=== PATIENT | male | born 1930 | race Caucasian/White ===

== ENCOUNTER 2017-11-15 17:59 | Observation (INO) | payer OTHER, MEDICARE ==
[~2017-11-15] VITALS: Ht 172.7 cm; Wt 71.2 kg
[~2017-11-15 17:59] MED LIST: ALPRAZOLAM0.25 MG PO; AMPICILLIN TRI500 MG PO; ASPIRIN CHILDRE81 MG PO; ASPIRIN EC81 M1 PO; ASPIRIN81 MG PO; AUGMENTIN 875-1 EACH PO; AUGMENTIN 875875 MG PO; CELEXA20 MG PO; CELEXA40 M1 PO; CELEXA40 MG PO; CIPRO500 M1 PO; CITALOPRAM HBR40 MG PO; CITALOPRAM HYDR40 MG PO; CITALOPRAM20 MG PO; CLARITIN10 MG PO; DIAPER RASH OIN56 GM TOP; DULCOLAX5 MG PO; FLOMAX(MONOGRA0.4 MG PO; FLOMAX0.4 M1 PO; GABAPENTIN300 MG PO; LANTUS INS100 UNITS/ SC; LEVOTHROID SO0.05 MG PO; METFORMIN ER500 MG PO; METFORMIN1000 MG PO; MIRALAX17 GM PO; MOBIC15 MG PO; MOTRIN 400 MG400 MG PO; MYRBETRIQ25 M1 PO; NEURONTIN100 MG PO; NEURONTIN300 M1 PO; PIOGLITAZONE30 MG PO; PRILOSEC40 MG PO; PROTONIX40 M3 PO; RAMIPRIL5 MG PO; RAPAFLO8 MG PO; RASAGILINE MESYL1 MG PO; SENNA PLUS 50 M1 TAB PO; SENOKOT8.6 MG PO; SIMVASTATIN40 MG PO; SINEMET 25-1001 TAB PO; SINEMET 25-2501 EACH PO; TYLENOL #31 TAB PO; TYLENOL TAB 32325 MG PO; ULTRAM(MONOGRAP50 MG PO; ULTRAM50 MG PO; VESICARE 10MG10 MG PO; VICODIN 300 MG-1 TAB PO; XANAX0.25 M1 PO; ZOCOR20 M1 PO; [UNRECOGNIZED DRUG - OTHER] PO
--- NOTE | 2017-11-15 18:56 | ED GENERAL ADULT ---
History of Present Illness General Chief Complaint: General Adult Stated Complaint: ?LOW BLOOD SUGAR Source: patient, family, old records Exam Limitations: no limitations Vital Signs & Intake/Output Vital Signs & Intake/Output Vital Signs Date Time Temp Pulse Resp B/P B/P Pulse O2 O2 Flow FiO2 Mean Ox Delivery Rate 11/17 0800 Nasal 3.0L Cannula 11/17 0620 98.0 78 18 141/72 96 Nasal Cannula 11/17 0000 96 Nasal 3.0L Cannula 11/16 2300 98.2 80 20 120/74 96 Nasal 3.0L Cannula 11/16 1506 99.2 80 18 156/69 91 Room Air ED Intake and Output 11/17 0000 11/16 1200 Intake Total 995 400 Output Total Balance 995 400 Intake, IV 875 400 Intake, Oral 120 Patient 157 lb Weight Allergies Coded Allergies: NO KNOWN ALLERGIES (04/10/15) Reconcile Medications Aspirin (Ecotrin*) 81 MG TABLET.DR 1 TAB PO DAILY HEART/BLOOD (Reported) Carbidopa/Levodopa (Carbidopa-Levo ER 50-200 Tab) 50 MG-200 MG TABLET.ER 1 TAB PO TID PARKINSONS (Reported) Citalopram Hydrobromide (Citalopram HBr) 40 MG TABLET 1.5 TAB PO QHS DEPRESSION (Reported) Gabapentin (Neurontin) 300 MG CAPSULE 1 CAP PO BID NEUROPATHY (Reported) Mirabegron (Myrbetriq) 25 MG TAB.ER.24H 1 TAB PO QAM BPH (Reported) Pantoprazole Sodium (Protonix) 40 MG TABLET.DR 1 TAB PO QAM GI (Reported) Rasagiline Mesylate 1 MG TABLET 1 TAB PO QAM UNKNOWN (Reported) Simvastatin (Zocor*) 20 MG TABLET 1 TAB PO QPM CHOLESTEROL (Reported) Tamsulosin HCl (Flomax) 0.4 MG CAP.ER.24H 1 CAP PO QPM BPH (Reported) Triage Note: PT TO TRIAGE WITH HIS PRIVATE AIDE, PT LIVES AT HOME , PT STATES THAT HE JUST HAS NOT BEEN FEELING WELL SINCE THIS AM, DENIES PAIN AT THIS TIME , BUT STATES THAT HE HAS NOT BEEN FEELING WELL SINCE THIS AM, FEELS ACHEY ALL OVER, DENIES COUGH OR SOB, BUT PT NOTED TO SEEM SOB WHEN TALKING , COLOR PALE. PT IS A DIABETIC , BUT PER AIDE HIS SUGARS HAVE BEEN RUNNING ALL OVER THE PLACE, FS AT TRIAGE 187. PT TAKES NO MEDS FOR DIABETES. PT ALERT AND ORIENTED , DENIES CP/SOB/ABD PAIN, AIDE STATES THAT APPETITE HAS BEEN GOOD , NO PROBLEMS WITH BOWEL MOVEMENTS AND NO BLOOD NOTED IN STOOL. DENIES URINARY SYMPTOMS Triage Nurses Notes Reviewed? yes Onset: Abrupt Duration: day(s): (1), constant, continues in ED Timing: single episode today Injury Environment: home Severity: mild, moderate No Modifying Factors: none HPI: 87-year-old male past medical history Parkinson's disease, hypertension, hyperlipidemia and diabetes presents for evaluation of hyperglycemia. Patient's aide reports that he stopped taking oral diabetes medicines a year ago due to good blood sugar control with diet. Patient usually takes his sugar regularly and runs in the 140s. Today it was over 200. Patient does note that he did eat some doughnuts today. Patient states he feels well otherwise ovaries aide states that he feels like he is actively he has no past when he said UTIs. No fever chest pain shortness of breath. Patient does report some mild lower abdominal pain. No urinary symptoms. No back pain. He's been taking his medications as directed. No nausea vomiting diarrhea. He is eating normally. No coughing no lower extremity edema. (Adryan Graf) Past History Travel History Traveled to [place] past 21 day No Medical History Any Pertinent Medical History? see below for history Neurological: Parkinson's disease EENT: NONE Cardiovascular: hypertension, hyperlipidemia Respiratory: NONE Gastrointestinal: diverticulitis Hepatic: NONE Renal: NONE Musculoskeletal: NONE Psychiatric: NONE Endocrine: diabetes Blood Disorders: NONE Cancer(s): NONE PET FOOD DEBONER/Reproductive: NONE History of MRSA: No History of VRE: No History of CDIFF: No Influenza Vaccine: 07/24/17 Tetanus Vaccine: 02/17/15 Surgical History Surgical History: appendectomy, cholecystectomy, rotator cuff surgery, achilles tendon repair, hernia repair, sigmoid resection for diverticulitis Psychosocial History Who do you live with Spouse Services at Home Home Health Aide What is your primary language Armenian Tobacco Use: Never used ETOH Use: denies use Illicit Drug Use: denies illicit drug use Family History Family History, If Any: BROTHER (Patient has 2 brothers who were diagnosed with diabetes). Hx Contributory? No (Adryan Graf) Surgical History Surgical History: cholecystectomy, rotator cuff surgery, achilles tendon repair, hernia repair, sigmoid resection for diverticulitis (Domitila ALLAN,Taran Boyer) Review of Systems Review of Systems Constitutional: Reports: no symptoms. EENTM: Reports: no symptoms. Respiratory: Reports: no symptoms. Cardiovascular: Reports: no symptoms. GI: Reports: see HPI, abdominal pain. Genitourinary: Reports: no symptoms. Musculoskeletal: Reports: no symptoms. Skin: Reports: no symptoms. Neurological/Psychological: Reports: no symptoms. Hematologic/Endocrine: Reports: no symptoms. Immunologic/Allergic: Reports: no symptoms. All Other Systems: Reviewed and Negative (Adryan Graf) Physical Exam Physical Exam General Appearance: well developed/nourished, no apparent distress, alert, awake Head: atraumatic, normal appearance Eyes: Bilateral: normal appearance, PERRL, EOMI. Ears, Nose, Throat: normal pharynx, normal ENT inspection, hearing grossly normal Neck: normal inspection, supple, full range of motion Respiratory: normal breath sounds, chest non-tender, no respiratory distress, lungs clear Cardiovascular: regular rate/rhythm, normal peripheral pulses Peripheral Pulses: 2+ radial (R), 2+ radial (L) Gastrointestinal: normal bowel sounds, soft, no organomegaly, mild suprapubic Back: normal inspection, normal range of motion, no vertebral tenderness Extremities: normal inspection, normal range of motion, no edema Neurologic/Psych: no motor/sensory deficits, awake, alert, oriented x 3 Skin: intact, warm/dry, pallor Lymphatic: no anterior cervical mejia Core Measures ACS in differential dx? No CVA/TIA Diagnosis: No Sepsis Present: No Sepsis Focused Exam Completed? No (Adryan Graf) Progress Differential Diagnoses I considered the following diagnoses in my evaluation of the patient: [UTI, pneumonia, sepsis, electrolyte abnormality, diverticulitis, kidney stone, pyelonephritis hyperglycemia] Plan of Care: Orders Procedure Date/time Status Consistent Carbohydrate 3 11/17 B Active CBC WITHOUT DIFFERENTIAL 11/17 599 Complete BASIC ELECTROLYTES PLUS BUN&CR 11/17 06 Complete PT Evaluate & Treat 11/17 UNK Active Theraputic Activities 15 Min 11/17 UNK Complete MOBILITY GOAL STATUS 11/17 UNK Complete MOBILITY CURRENT STATUS 11/17 UNK Complete PT EVAL LOW COMPLEX 20 MIN 11/17 UNK Complete Clear Liquid Diet 11/16 D Complete Current Medications Sig/Eduin Start time Last Medication Dose Stop Time Status Admin Citalopram 40 MG DAILY 11/17 1000 AC 11/17 Hydrobromide 1055 (Celexa) Pantoprazole Sodium 40 MG DAILY 11/17 1000 CAN (Protonix) Tamsulosin HCl 0.4 MG DAILY 11/17 1000 AC 11/17 (Flomax) 1056 Heparin Sodium 5,000 UNIT Q8H 11/17 0945 AC 11/17 (Porcine) 1057 Insulin Human Regular 0 TIDAC/HS 11/17 0800 AC (NovoLIN R) Atorvastatin Calcium 20 MG AT BEDTIME 11/16 2199 CAN (Lipitor) Carbidopa/Levodopa 1 TAB TID 11/16 2199 AC 11/17 (Sinemet CR 50/200MG) 105 Citalopram 40 MG AT BEDTIME 11/16 2199 CAN Hydrobromide (Celexa) Gabapentin 300 MG BID 11/16 2199 AC 11/17 (Neurontin) 105 Tamsulosin HCl 0.4 MG QPM 11/16 2199 CAN (Flomax) Acetaminophen 650 MG Q4P PRN 11/16 2114 AC (Tylenol) Artificial Tears 2 GTT Q3P PRN 11/16 2114 AC (Tears Natural) Ketorolac 15 MG Q6-PRN PRN 11/16 2114 AC Tromethamine (Toradol) Ondansetron HCl 4 MG Q8P PRN 11/16 2114 AC (Zofran) Oxycodone/ 1 TAB Q4P PRN 11/16 2114 AC Acetaminophen (Percocet) Oxycodone/ 2 TAB Q4P PRN 11/16 2114 AC Acetaminophen (Percocet) Laboratory Tests 11/17/17 0745: Anion Gap 7, Estimated GFR > 60, BUN/Creatinine Ratio 15.0, CBC w Diff NO MAN DIFF REQ, RBC 4.39 L, MCV 67.5 L, MCH 21.5 L, MCHC 31.9 L, RDW 16.3 H, MPV 8.6, Gran % 70.9, Lymphocytes % 20.7, Monocytes % 6.1, Eosinophils % 1.9, Basophils % 0.4, Absolute Granulocytes 5.2, Absolute Lymphocytes 1.5, Absolute Monocytes 0.4, Absolute Eosinophils 0.1, Absolute Basophils 0 Patient seen and evaluated. His blood sugar here is in the 160s. Blood work shows normal electrolytes, white blood cell count negative lactic acid. Urine is not showing any signs of infection. Patient did have a drop in his pressure to the 90s over 50s. 2 L of normal saline was ordered without significant improvement. A CT scan of the abdomen and pelvis with contrast was ordered. Patient continues to be mentating at his baseline. Family is at bedside and feels like his mental status is at baseline. He denies any chest pain or shortness of breath. pt signed out to dr garcia pending ct scan result. Diagnostic Imaging: Viewed by Me: Radiology Read. Discussed w/RAD: Radiology Read. CXR Impression: PATIENT: EDIN VÁZQUEZ PRESENT AGE: 87 PATIENT ACCOUNT NO: [id number] : 31 LOCATION: [facility] ORDERING PHYSICIAN: Adryan ADAMSON SERVICE DATE: 11/15/17 EXAM TYPE: RAD - XRY-PORTABLE CHEST XRAY EXAMINATION: XR PORTABLE CHEST CLINICAL INFORMATION: Pneumonia CHF. Altered mental status. COMPARISON: Prior chest October 2017. TECHNIQUE: Portable frontal view of the chest was obtained. FINDINGS: Lung volumes remain low as seen previously. Lungs otherwise clear. The cardiac silhouette mediastinum and pulmonary vascularity are unremarkable. Postsurgical changes in left shoulder. IMPRESSION: No acute disease. DICTATED BY: Sylvester Leiva MD DATE/TIME DICTATED:11/15/172015 EEG TECHNOLOGIST:ZAHRA DATE/TIME TRANSCRIBED:11/15/172015 CONFIDENTIAL, DO NOT COPY WITHOUT APPROPRIATE AUTHORIZATION. <Electronically signed in Other Vendor System> SIGNED BY: Sylvester Leiva MD 11/15/172026 Initial ED EKG: normal sinus rhythm (rate 97), borderline inferior t wave abn Hand-Off Endorsed To: Taran Garcia MD Endorsed Time: 2320 Pending: CT (Adryan Graf) Diagnostic Imaging: Viewed by Me: CT Scan. Discussed w/RAD: CT Scan. Radiology Impression: PATIENT: EDIN VÁZQUEZ PRESENT AGE: 87 PATIENT ACCOUNT NO: [id number] : 31 LOCATION: [facility] ORDERING PHYSICIAN: Adryan ADAMSON SERVICE DATE: 11/15/17 EXAM TYPE: CAT - CT ABD & PELVIS W IV CONTRAST EXAMINATION: CT ABDOMEN AND PELVIS WITH CONTRAST CLINICAL INFORMATION: Abdominal pain COMPARISON: CT scan abdomen pelvis 07/31/2015 TECHNIQUE: Multidetector volumetric imaging was performed of the abdomen and pelvis following IV administration of 95 mL of Optiray 320 intravenous contrast. Sagittal and coronal reformatted images were obtained on the technologist's workstation. DLP: 888.47 mGy-cm FINDINGS: LUNG BASES: The visualized lung bases are unremarkable. LIVER, GALLBLADDER, AND BILIARY TREE: The liver is normal in size, shape, and attenuation. No focal hepatic lesion or biliary ductal dilatation is present. Gallbladder is absent. No bile duct dilatation. PANCREAS: The pancreas is atrophic. There is no inflammation. SPLEEN: Unremarkable. ADRENAL GLANDS: Unremarkable. KIDNEYS AND URETERS: The kidneys are normal in size, shape, and attenuation. No hydronephrosis, hydroureter, or calculi seen. No perinephric stranding. BLADDER: Unremarkable. ABDOMINAL WALL/GASTROINTESTINAL TRACT: There is a ventral wall hernia at the umbilicus. The abdominal wall defect measures about 1.7 cm superior inferior. Small bowel loops have herniated into this defect and is causing a mild small bowel obstruction. The proximal small bowel loops are slightly dilated. Surgical suture line at the sigmoid intact. No acute change of large bowel. Moderate to large-volume of stool throughout the colon. The appendix is not identified. LYMPH NODES: Normal. VASCULAR: Diffuse atherosclerotic vascular wall calcifications of the abdomen and pelvis. There is no aneurysm PELVIC VISCERA: Unremarkable. OSSEOUS STRUCTURES: Degenerative spondylosis spine with multilevel endplate spurring and facet joint arthrosis. IMPRESSION: Umbilical hernia containing a small bowel loop which is causing mild small bowel obstruction. DICTATED BY: Charlie Fabian MD DATE/TIME DICTATED:11/15/172333 EEG TECHNOLOGIST:ZAHRA DATE/TIME TRANSCRIBED:11/15/172333 CONFIDENTIAL, DO NOT COPY WITHOUT APPROPRIATE AUTHORIZATION. <Electronically signed in Other Vendor System> SIGNED BY: Charlie Fabian MD 11/15/17 0110 (Domitila ALLAN,Taran Boyer) Departure Departure Disposition: STILL A PATIENT Condition: Stable Clinical Impression Primary Impression: Abdominal pain Qualifiers: Abdominal location: lower abdomen, unspecified Qualified Code: R10.30 - Lower abdominal pain, unspecified Referrals: Kaylen ALLAN,Otis Powell (PCP/Family) Departure Forms: Customer Survey General Discharge Information (Adryan Graf) PA/[employer] Co-Sign Statement Statement: ED Attending supervision documentation- [X] I saw and evaluated the patient. I have also reviewed all the pertinent lab results and diagnostic results. I agree with the findings and the plan of care as documented in the PA's/[employer]'s documentation. [X] I have reviewed the ED Record and agree with the PA's/[employer]'s documentation. [] Additions or exceptions (if any) to the PAs/[employer]'s note and plan are summarized below: [] (Evie ALLAN,Sheryl) Departure Comments 11/16/17, 1:17am... discussed with Ms. Vázquez (his ) and shared news of his hernia and small bowel obstruction. She expresses understanding. Observation Note Spoke With: Calvin ALLAN,Silviano Seay Place Patient In: Non-ED OBS Care Area Rationale for Observation: My rational for observation is as follows . pt with umbilical hernia w/ sbo... after multiple attempts at reduction, pt to be placed in observation... will engage surgical team... pt to be monitored overnight. PA/[employer] Co-Sign Statement Statement: ED Attending supervision documentation- [x] I saw and evaluated the patient. I have also reviewed all the pertinent lab results and diagnostic results. I agree with the findings and the plan of care as documented in the PA's/[employer] documentation. 11.16.17, 1am... pt with umbilical hernia w/ sbo... unsuccessful attempt at reduction by myself and surgical PA.... pt to be admitted for likely surgical repair. [] I have reviewed the ED Record and agree with the PA's/[employer]'s documentation. [] Additions or exceptions (if any) to the PAs/[employer]'s note and plan are summarized below: [] (Domitila ALLAN,Taran Boyer) Critical Care Note Critical Care Note Critical Care Time: non-applicable (Adryan Graf) pt with umbilical hernia w/ sbo... after multiple attempts at reduction, pt to be placed in observation... will engage surgical team... pt to be monitored overnight. PA/[employer] Co-Sign Statement Statement: ED Attending supervision documentation- [x] I saw and evaluated the patient. I have also reviewed all the pertinent lab results and diagnostic results. I agree with the findings and the plan of care as documented in the PA's/[employer] documentation. 11.16.17, 1am... pt with umbilical hernia w/ sbo... unsuccessful attempt at reduction by myself and surgical PA.... pt to be admitted for likely surgical repair. [] I have reviewed the ED Record and agree with the PA's/[employer] documentation. [] Additions or exceptions (if any) to the PAs/[employer]'s note and plan are summarized below: [] (Domitila ALLAN,Taran Boyer) Critical Care Note Critical Care Note Critical Care Time: non-applicable (Naun ADAMSON,Adryan)
[2017-11-15] MEDS ORDERED: SINEMET 25-1001 EACH PO (19:17)
[2017-11-15] MEDS ORDERED: CARBIDOPA-LEVO1 EAC9 PO (19:19)
[2017-11-15 19:37] LABS: ABSOLUTE BASOPHIL COUNT 0 /CUMM (0.0-0.2); ABSOLUTE EOSINOPHIL COUNT 0.1 /CUMM (0.0-0.7); ABSOLUTE LYMPH COUNT 1.7 /CUMM (1.2-3.4); ABSOLUTE MONOCYTE COUNT 0.4 /CUMM (0.10-0.60); BASOPHIL % 0.5 % (0.0-2.0); EOSINOPHIL % 1.9 % (0-5); HEMATOCRIT 35.2 % (42-52); MEAN CORPUSCULAR HGB 20.8 PG (27.0-31.0); MEAN CORPUSCULAR HGB CONC 30.9 G/DL (33.0-37.0); MEAN PLATELET VOLUME 8.3 FL (7.4-10.4); PLATELET COUNT 223 /CUMM (130-400); RBC DISTRIBUTION WIDTH 16.5 % (11.5-14.5); RED BLOOD CELL CT 5.24 /CUMM (4.70-6.10); WHITE BLOOD CELL COUNT 7.2 /CUMM (4.8-10.8)
[2017-11-15 19:55] LABS: MEAN CORPUSCULAR VOLUME 67.2 FL (80.0-94.0)
--- NOTE | 2017-11-15 20:27 | RADIOLOGY REPORT ---
EXAMINATION: XR PORTABLE CHEST CLINICAL INFORMATION: Pneumonia CHF. Altered mental status. COMPARISON: Prior chest October 2017. TECHNIQUE: Portable frontal view of the chest was obtained. FINDINGS: Lung volumes remain low as seen previously. Lungs otherwise clear. The cardiac silhouette mediastinum and pulmonary vascularity are unremarkable. Postsurgical changes in left shoulder. IMPRESSION: No acute disease.
[2017-11-15 20:56] LABS: PT 11.7 SEC (9.4-12.5); PTT 30 SEC (25-37)
--- NOTE | 2017-11-15 23:58 | CT SCAN REPORT ---
EXAMINATION: CT ABDOMEN AND PELVIS WITH CONTRAST CLINICAL INFORMATION: Abdominal pain COMPARISON: CT scan abdomen pelvis 07/31/2015 TECHNIQUE: Multidetector volumetric imaging was performed of the abdomen and pelvis following IV administration of 95 mL of Optiray 320 intravenous contrast. Sagittal and coronal reformatted images were obtained on the technologist's workstation. DLP: 888.47 mGy-cm FINDINGS: LUNG BASES: The visualized lung bases are unremarkable. LIVER, GALLBLADDER, AND BILIARY TREE: The liver is normal in size, shape, and attenuation. No focal hepatic lesion or biliary ductal dilatation is present. Gallbladder is absent. No bile duct dilatation. PANCREAS: The pancreas is atrophic. There is no inflammation. SPLEEN: Unremarkable. ADRENAL GLANDS: Unremarkable. KIDNEYS AND URETERS: The kidneys are normal in size, shape, and attenuation. No hydronephrosis, hydroureter, or calculi seen. No perinephric stranding. BLADDER: Unremarkable. ABDOMINAL WALL/GASTROINTESTINAL TRACT: There is a ventral wall hernia at the umbilicus. The abdominal wall defect measures about 1.7 cm superior inferior. Small bowel loops have herniated into this defect and is causing a mild small bowel obstruction. The proximal small bowel loops are slightly dilated. Surgical suture line at the sigmoid intact. No acute change of large bowel. Moderate to large-volume of stool throughout the colon. The appendix is not identified. LYMPH NODES: Normal. VASCULAR: Diffuse atherosclerotic vascular wall calcifications of the abdomen and pelvis. There is no aneurysm PELVIC VISCERA: Unremarkable. OSSEOUS STRUCTURES: Degenerative spondylosis spine with multilevel endplate spurring and facet joint arthrosis. IMPRESSION: Umbilical hernia containing a small bowel loop which is causing mild small bowel obstruction.
--- NOTE | 2017-11-16 02:05 | History & Physical ---
Taran Lange 11/16/17 0154: General Information and HPI History of Present Illness: This is a 86 y/o M w/ PMHx of HTN, HLD, DMII (diet controlled), Parkinsons disease, depression, GERD, BPH, and UTIs that presents to [facility] with a one day history of worsening abdominal pain and generilized body aches. Of note, patient is not the best historian and does not answer questions directly when asked. Majority of history was obtained from chart review. Patient arrived to the ED with his private aid. Reportadly patient was in his usual state of health until yesterday morning he had generilized aches, feeling poor, and mild abdominal pain. Initially these symptoms were attributed to high glucose levels in the 200s. He normally checks his glucose regularly and it runs in the 140s, however it was abnormally elevated today. Also, patient has a history of UTIs causing abdominal pain and altered mental status, but this was not thought to be the case. Patients abdominal pain continued and became constant. He denies any associated nausea/vomiting, urinary systmptoms, fever/chills, dyspnea, chest pain, and/or palpitations. He did not eat well today and his last BM was yesterday. Therefore, he was brought to the ED for further evaluation. In the ED he was found to be in mild distress secondary to abdominal pain. Pt is afebrile and other vitals are within normal limits. WBC is 7.5 with a latic acid of 1.6. Other cbc and chemistry are within normal limits. UA is clean. CT abdomen shows a 1.7 cm superior inferior ventral hernia contraining small bowel loops with associtated mild SBO. Therefore, surgery consult was obtained. Allergies/Medications Allergies: Coded Allergies: NO KNOWN ALLERGIES (04/10/15) Past History Travel History Traveled to [place] past 21 day No Medical History Neurological: Parkinson's disease EENT: NONE Cardiovascular: hypertension, hyperlipidemia Respiratory: NONE Gastrointestinal: diverticulitis Hepatic: NONE Renal: NONE Musculoskeletal: NONE Psychiatric: NONE Endocrine: diabetes Blood Disorders: NONE Cancer(s): NONE TRENCH PIPE LAYER HELPER/Reproductive: NONE History of MRSA: No History of VRE: No History of CDIFF: No Tetanus Vaccine: 02/17/15 Surgical History Surgical History: cholecystectomy, rotator cuff surgery, achilles tendon repair, hernia repair, sigmoid resection for diverticulitis Past Family/Social History Family History Relations & Conditions if any BROTHER (Patient has 2 brothers who were diagnosed with diabetes). Psychosocial History Services at Home: Home Health Aide Primary Language: Polish ETOH Use: denies use Illicit Drug Use: denies illicit drug use Living Will? unknown Functional Ability ADLs Needs Assist: dressing, eating, toileting, bathing. Ambulation: independent IADLs Needs Assist: shopping, housework, finances, food prep, telephone, transportation, medication admin. Review of Systems Review of Systems Constitutional: Reports: see HPI. Exam & Diagnostic Data Last 24 Hrs of Vital Signs/I&O Vital Signs Date Time Temp Pulse Resp B/P B/P Pulse O2 O2 Flow FiO2 Mean Ox Delivery Rate 11/15 2330 97.4 82 13 111/60 93 Room Air 11/15 2308 86 18 115/66 97 Room Air Room Air 11/15 2138 97.9 88 18 92/56 96 Room Air 11/15 1959 98.1 90 18 95/52 95 Room Air 11/15 1925 Room Air 11/15 1805 97.7 99 18 158/100 95 Room Air Intake & Output 11/16 0800 11/16 0000 11/15 1600 Intake Total 1000 Output Total 600 Balance 400 Intake, IV 1000 Intake, Oral 0 Output, Urine 600 Patient 157 lb Weight Physical Exam General Appearance Alert, Oriented X3, No Acute Distress HEENT Atraumatic Neck Supple, No JVD Cardiovascular Regular Rate, Normal S1, Normal S2 Lungs Clear to Auscultation, Normal Air Movement Abdomen small palpable ventral hernia defect next to umbilicus, well healed midline verticle scar around umbilicus, tender, bowel sounds present Neurological Cranial Nerves 3-12 NL Extremities No Edema Last 24 Hrs of Labs/Tom: Laboratory Tests 11/15/172154: Lactic Acid Cancelled 11/15/172113: Urine Color YEL, Urine Clarity CLEAR, Urine pH 6.0, Ur Specific [place] 1.010, Urine Protein NEG, Urine Ketones NEG, Urine Nitrite NEG, Urine Bilirubin NEG, Urine Urobilinogen 0.2, Ur Leukocyte Esterase NEG, Ur Microscopic EXAM NOT REQUIRED, Urine Hemoglobin NEG, Urine Glucose NEG 11/15/171919: Anion Gap 11, Estimated GFR > 60, BUN/Creatinine Ratio 21.1, Glucose 163 H, Lactic Acid 1.6, Calcium 9.2, Total Bilirubin 0.4, AST 31, ALT 13 L, Alkaline Phosphatase 77, Troponin I < 0.01, Total Protein 7.1, Albumin 4.2, Globulin 2.9, Albumin/Globulin Ratio 1.4, PT 11.7, INR 1.07, APTT 30, CBC w Diff NO MAN DIFF REQ, RBC 5.24, MCV 67.2 L, MCH 20.8 L, MCHC 30.9 L, RDW 16.5 H, MPV 8.3, Gran % 69.0, Lymphocytes % 23.4, Monocytes % 5.2, Eosinophils % 1.9, Basophils % 0.5, Absolute Granulocytes 5.0, Absolute Lymphocytes 1.7, Absolute Monocytes 0.4 , Absolute Eosinophils 0.1, Absolute Basophils 0 11/15/17 1826: Sodium Cancelled, Potassium Cancelled, Chloride Cancelled, Carbon Dioxide Cancelled, Anion Gap Cancelled, BUN Cancelled, Creatinine Cancelled, BUN/ Creatinine Ratio Cancelled, Glucose Cancelled, Calcium Cancelled, Total Bilirubin Cancelled, AST Cancelled, ALT Cancelled, Alkaline Phosphatase Cancelled, Total Protein Cancelled, Albumin Cancelled, Globulin Cancelled, Albumin/Globulin Ratio Cancelled Microbiology 11/15 1920 NASOPHARYN: Influenza Virus A & B Rapid Smear - COMP Assessment/Plan Assessment: A: This is a 86 y/o M w/ PMHx of HTN, HLD, DMII (diet controlled), Parkinsons disease, depression, GERD, BPH, and UTIs that presents to [facility] with a one day history of worsening abdominal pain with CT evidence of SBO from incarcerated ventral hernia. Patient is hd stable. No leukocytosis and normal latic acid. Will admit to surgery service for observation for possible ventral hernia repair in the morning. P: GI: NPO for possible OR tomorrow morning, no need for NG tube at this time, recheck latic acid in am, zofran PRN, protonix CV: monitor vitals per protocol Pulm: pulmonary toilet with deep breathing/coughing, titrate 02 >92% Neuro: morphine iv PRN, toradol PRN : monitor i&os ID: afebrile, no wbc, monitor for fever, no need for abx at this time Fluids/e-lyes: low IVFs overnight, monitor e-lytes Ortho: oob as tolerated with assistance Heme: will hold off on ac for now, athrombic pumps Will discuss with Dr. Simpson As Ranked By This Provider Problem List: 1. Abdominal pain Qualifiers Abdominal location: lower abdomen, unspecified Qualified Code: R10.30 - Lower abdominal pain, unspecified Core Measures/Misc (05/26) Acute Coronary Syndrome ACS Diagnosis: No Congestive Heart Failure Congestive Heart Failure Diagnosis No Cerebrovascular Accident CVA/TIA Diagnosis: No VTE (View Protocol) VTE Risk Factors Age>40 No Mechanical VTE Prophylaxis d/t N/A MechProphylax Ordered No VTE Pharm Prophylaxis d/t Surgical Contraindication Sepsis (View protocol) Sepsis Present: No Silviano Simpson MD 11/16/17 0851: General Information and HPI Allergies/Medications Home Med list Aspirin (Ecotrin*) 81 MG TABLET.DR 1 TAB PO DAILY HEART/BLOOD (Reported) Carbidopa/Levodopa (Carbidopa-Levo ER 50-200 Tab) 50 MG-200 MG TABLET.ER 1 TAB PO TID PARKINSONS (Reported) Citalopram Hydrobromide (Citalopram HBr) 40 MG TABLET 1.5 TAB PO QHS DEPRESSION (Reported) Gabapentin (Neurontin) 300 MG CAPSULE 1 CAP PO BID NEUROPATHY (Reported) Mirabegron (Myrbetriq) 25 MG TAB.ER.24H 1 TAB PO QAM BPH (Reported) Pantoprazole Sodium (Protonix) 40 MG TABLET.DR 1 TAB PO QAM GI (Reported) Rasagiline Mesylate 1 MG TABLET 1 TAB PO QAM UNKNOWN (Reported) Simvastatin (Zocor*) 20 MG TABLET 1 TAB PO QPM CHOLESTEROL (Reported) Tamsulosin HCl (Flomax) 0.4 MG CAP.ER.24H 1 CAP PO QPM BPH (Reported) Past History Surgical History Surgical History: appendectomy, hernia repair-inguinal Exam & Diagnostic Data Last 24 Hrs of Vital Signs/I&O Vital Signs Date Time Temp Pulse Resp B/P B/P Pulse O2 O2 Flow FiO2 Mean Ox Delivery Rate 11/16 0620 98.3 75 18 108/60 91 Room Air 11/16 0258 98.5 84 18 106/62 91 Room Air 11/16 0233 97.3 87 18 125/91 98 Room Air 11/15 2330 97.4 82 13 111/60 93 Room Air 11/15 2308 86 18 115/66 97 Room Air Room Air 11/15 2138 97.9 88 18 92/56 96 Room Air 11/15 1958 98.1 90 18 95/52 95 Room Air 11/15 1925 Room Air 11/15 1805 97.7 99 18 158/100 95 Room Air Intake & Output 11/16 1600 11/16 0800 11/16 0000 Intake Total 400 1000 Output Total 600 Balance 400 400 Intake, IV 400 1000 Intake, Oral 0 Output, Urine 600 Patient 157 lb 157 lb Weight Attending MD Review Statement Attending Statement Attending MD Statement: examined this patient, discuss w/resident/PA/JOINT SUPERVISOR, reviewed images Attending Assessment/Plan: Patient with incarcerated small bowel-containing incisional/periumbilical hernia. The hernia is now reduced and his symptoms have resolved. I recommend he undergo laparoscopic incisional hernia repair with mesh now, as he will likely have recurrence. I am concerned that his next episode of incarceration will progress to bowel ischemia. He is very reluctant to undergo surgery. But he appears confused. I discussed with his and daughter who state that he is of limited mobility. I feel he is moderate risk for perioperative complications The risk of hernia observation is high. Incarceration will likley recur. As of now, there is no emergent need for surgery since bowel has been reduced and symptoms resolved. Will await family decision. Plan feed and discharge if he decides against surgery. Discussed risks of surgery including but not limited to bleeding, infection and recurrence of the hernia. Understands permanent nature of mesh and need for explantation if infection occurs.
[2017-11-16 02:58] VITALS: BP 106/62
[2017-11-16 06:20] VITALS: BP 108/60
[2017-11-16 08:52] LABS: ABSOLUTE BASOPHIL COUNT 0 /CUMM (0.0-0.2); ABSOLUTE EOSINOPHIL COUNT 0.2 /CUMM (0.0-0.7); ABSOLUTE GRANULOCYTE CT 4.3 /CUMM (1.4-6.5); ABSOLUTE LYMPH COUNT 2.1 /CUMM (1.2-3.4); ABSOLUTE MONOCYTE COUNT 0.4 /CUMM (0.10-0.60); BASOPHIL % 0.6 % (0.0-2.0); EOSINOPHIL % 2.7 % (0-5); GRANULOCYTE % 61.4 % (42.2-75.2); MEAN CORPUSCULAR HGB 21.5 PG (27.0-31.0); MEAN CORPUSCULAR HGB CONC 32.5 G/DL (33.0-37.0); MEAN CORPUSCULAR VOLUME 66.3 FL (80.0-94.0); MEAN PLATELET VOLUME 8.7 FL (7.4-10.4); PLATELET COUNT 175 /CUMM (130-400); RBC DISTRIBUTION WIDTH 16.2 % (11.5-14.5); RED BLOOD CELL CT 4.24 /CUMM (4.70-6.10)
[2017-11-16 09:58] LABS: HEMATOCRIT 28.1 % (42-52)
--- NOTE | 2017-11-16 11:43 | PN- General Surgery ---
Surgical Brief Attending Note Brief Attending Note: discussed with family. they are interested in hernia repair. plan for open repair with mesh under local MAC today. Unfortunately, there are two operations now scheduled that take operative priority. will go to OR when time available.
[2017-11-16 15:06] VITALS: BP 156/69
--- NOTE | 2017-11-16 19:03 | Event Note ---
Event Note Event Note: Patient is ready for surgery. He is mentally incapable for informed consent. I obtained consent from his daughter, Jean Vázquez over the phone as witnessed by nursing. I informed her that anesthesia will also require consent and that they will be calling as well. Unfortunately there is no answer to any of the numbers we have for patients contacts. Will proceed with surgery despite lack of anesthesia consent. Plan for open incisional hernia repair under local MAC (TEVA ).
--- NOTE | 2017-11-16 20:20 | Operative Report ---
Operative/Inv Procedure Report Surgery Date: 11/16/17 Name of Procedure: Standard incisional hernia repair with mesh Pre-Operative Diagnosis: Incarcerated incisional hernia Post-Operative Diagnosis: Same Estimated Blood Loss: scant Surgeon/Science Analyst: Calvin ALLAN,Silviano Seay/Ivis ADAMSON Anesthesia: laryngeal mask airway Implants: 4.5 cm ventral X mesh Operative/Procedure Note Note: After informed consent patient brought to the operating room and laid supine. Gen. anesthesia obtained and the abdomen was prepped and draped. The periumbilical tissues were infiltrated with a cocktail local anesthesia. A curvilinear incision was made sharply. We dissected down to the umbilical stalk and circumferentially dissected it bluntly. The stock was then transected with cautery, thus exposing the defect. The hernia sac was circumferentially dissected down to level of fascia and incised the neck with cautery. There were 2 fascial defects both of which were incorporated into the same fascial closure site. Contents were then reduced. Intra-peritoneal planes were then created a circumferential fashion due to the need for mesh placement. We measured the defect. It was 3 centered in greatest dimension. I initially chose a 6.6 cm Parietex mesh but could not place it probably due to difficulties with the mesh itself. I could never get it to lay flat and after multiple attempts, I extracted it and passed off the field. I then chose a 4 cm ventral X mesh. The mesh was rolled up and placed in the peritoneal cavity then unraveled below the defect. The fascia was then closed over the mesh with interrupted 0 Maxon sutures, incorporating a portion of the mesh laterally to keep it centered. Wound was irrigated with saline. The umbilical stalk re-created with 3-0 Vicryl. Incision was then closed in layers of Vicryl. Sterile dressings were applied. Sponge and needle counts are correct CC: Kaylen ALLAN,Otis Powell
[2017-11-16 23:00] VITALS: BP 120/74
--- NOTE | 2017-11-17 00:10 | PN- General Surgery ---
Subjective Subjective: Postop check Pt is now s/p open Ventral hernia repair under general anesthesia with LMA ( converted from local/mac due to need for intraop paralytic to facilitate procedure). Pt is doing well at this time. He reports no major complaints and denies pain. Tolerating sips of clear liquids. No nausea or vomiting. Incontinent of urine x 2 since arrival to floor, and also in pacu and OR previously. Denies CP or difficulty breathing. Objective Vital Signs and I&Os Vital Signs Date Time Temp Pulse Resp B/P B/P Pulse O2 O2 Flow FiO2 Mean Ox Delivery Rate 11/16 1506 99.2 80 18 156/69 91 Room Air 11/16 0620 98.3 75 18 108/60 91 Room Air 11/16 0258 98.5 84 18 106/62 91 Room Air 11/16 0233 97.3 87 18 125/91 98 Room Air Intake & Output 11/16 1600 11/16 0800 11/16 0000 / 1600 11/15 0800 11/15 0000 Intake Total 492 433 2756 Output Total 600 Balance 800 400 400 Intake, IV 147 850 1584 Intake, Oral 0 Output, Urine 600 Patient 157 lb 157 lb Weight Physical Exam: Gen: Pt is resting, but easily arousable and cooperative. He seems to be oriented to situation, but it's unclear. Exhibits logical humor. Cardiac: regular Pulmonary: clear Abdomen: Soft and nondistended. Dressing is c/d/i. No BS heard as of yet. Admits to mild jes-incisional tenderness. Assessment/Plan Assessment/Plan Pt is an 87 yo M who was admitted with an incarcerated ventral (supra-umbilical) hernia, which was eventually reduced without surgical intervention. Given the possible risk of recurrence, the decision was made to intervene with surgical repair. He is now POD #0 s/p ventral hernia repair with mesh. He tolerated the procedure well. Plan: -ok to advance diet as tolerated. -decrease IVF rate to 50/hr and then heplock in AM if tolerating po. -pain control with tylenol if needed. percocet or morphine if needed for more severe pain, but will try to avoid given pt's age. -leave dressing in place for now. reinforce prn. -SC heparin/alps for DVT ppx. -Protonix for GI ppx. -ambulate with assistance in am. (?baseline activity level). Consider PT consult for dc recommendations in am if needed. -home meds resumed, except those that aren't available. -insulin sliding scale with meals. Core Measures Venous Thromboembolism VTE Risk Factors Age>40 No Mechanical VTE Prophylaxis d/t N/A MechProphylax Ordered No VTE Pharm Prophylaxis d/t Surgical Contraindication
--- NOTE | 2017-11-17 00:18 | Patient Discharge Instructions ---
Discharge Instructions General Discharge Information You were seen/treated for: INCARCERATED VENTRAL HERNIA You had these procedures: REDUCTION OF HERNIA AT BEDSIDE, FOLLOWED BY OPEN REPAIR OF VENTRAL HERNIA WITH MESH Watch for these problems: FEVER >101, NAUSEA/VOMITING, DRAINAGE FROM WOUND, CHEST PAIN OR DIFFICULTY BREATHING Do not soak the wound: Yes Other wound care: YOU MAY REMOVE BAND-AIDS 2 DAYS AFTER SURGERY AND SHOWER DESIRED. LEAVE STERI STRIPS IN PLACE UNTIL THEY FALL OFF ON THEIR OWN. Diet Continue normal diet: Yes Recommended Diet: Diabetic Activity Full Activity/No Limits: No Activity Self Limited: Yes Pounds, do NOT lift more than: 5 Other activity limits: YOU MAY AMBULATE PER YOUR BASELINE LEVEL. NO STRENUOUS ACTIVITY OR HEAVY LIFTING, PUSHING OR PULLING. Acute Coronary Syndrome Inclusion Criteria At DC or during hospital stay patient has or had the following: ACS DIAGNOSIS No Discharge Core Measures Meds if any: Prescribed or Continued at Discharge Meds if any: NOT Prescribed or Continued at Discharge Congestive Heart Failure Inclusion Criteria At DC or during hospital stay patient has or had the following: CHF DIAGNOSIS No Discharge Core Measures Meds if any: Prescribed or Continued at Discharge Meds if any: NOT Prescribed or Continued at Discharge Cerebrovascular accident Inclusion Criteria At DC or during hospital stay patient has or had the following: CVA/TIA Diagnosis No Discharge Core Measures Meds if any: Prescribed or Continued at Discharge Meds if any: NOT Prescribed or Continued at Discharge Venous thromboembolism Inclusion Criteria VTE Diagnosis No VTE Type NONE VTE Confirmed by (Test) NONE Discharge Core Measures - Per Current guidelines, there needs to be overlap - treatment for the first 5 days of Warfarin therapy. - If discharged on Warfarin prior to 5 days of - overlap therapy, the patient will need to be - assessed for post discharge needs including - *Post discharge parental anticoagulation - *Warfarin and/or parental anticoagulation education - *Follow up date to check INR post discharge At least 5 days overlap therapy as Inpatient No Meds if any: Prescribed or Continued at Discharge Note: Overlap Therapy is Warfarin and Anticoagulant Meds if any: NOT Prescribed or Continued at Discharge
[2017-11-17 06:20] VITALS: BP 141/72
[2017-11-17 08:54] LABS: ABSOLUTE BASOPHIL COUNT 0 /CUMM (0.0-0.2); ABSOLUTE EOSINOPHIL COUNT 0.1 /CUMM (0.0-0.7); ABSOLUTE GRANULOCYTE CT 5.2 /CUMM (1.4-6.5); ABSOLUTE LYMPH COUNT 1.5 /CUMM (1.2-3.4); ABSOLUTE MONOCYTE COUNT 0.4 /CUMM (0.10-0.60); BASOPHIL % 0.4 % (0.0-2.0); EOSINOPHIL % 1.9 % (0-5); GRANULOCYTE % 70.9 % (42.2-75.2); HEMATOCRIT 29.6 % (42-52); MEAN CORPUSCULAR HGB 21.5 PG (27.0-31.0); MEAN CORPUSCULAR HGB CONC 31.9 G/DL (33.0-37.0); MEAN CORPUSCULAR VOLUME 67.5 FL (80.0-94.0); MEAN PLATELET VOLUME 8.6 FL (7.4-10.4); PLATELET COUNT 182 /CUMM (130-400); RBC DISTRIBUTION WIDTH 16.3 % (11.5-14.5); RED BLOOD CELL CT 4.39 /CUMM (4.70-6.10); WHITE BLOOD CELL COUNT 7.3 /CUMM (4.8-10.8)
--- NOTE | 2017-11-17 09:51 | PN- General Surgery ---
See Addendum Subjective Subjective: feeling well, offers no complaints. denies pain, not taking pain meds. awaiting his breakfast tray. +flatus no n/v. no cp/sob. no oob- awaiting pt eval Objective Vital Signs and I&Os Vital Signs Date Time Temp Pulse Resp B/P B/P Pulse O2 O2 Flow FiO2 Mean Ox Delivery Rate 11/17 0800 Nasal 3.0L Cannula 11/17 0620 98.0 78 18 141/72 96 Nasal Cannula 11/17 0000 96 Nasal 3.0L Cannula 11/16 2300 98.2 80 20 120/74 96 Nasal 3.0L Cannula 11/16 1506 99.2 80 18 156/69 91 Room Air Intake & Output 11/17 1600 11/17 0800 11/17 0000 11/16 1600 11/16 0800 11/16 0000 Intake Total 520 195 492 063 9303 Output Total 600 Balance 520 195 800 400 400 Intake, IV 400 75 391 273 4297 Intake, Oral 120 120 0 Number 0 Bowel Movements Output, Urine 600 Patient 157 lb 157 lb Weight Physical Exam: GEN- NAD, pleasantly confused. CARD-S1S2 RRR PULM- CTAB ABD- soft, dressing CDI, ttp surrounding incision, quiet bs ext- calves soft nt, alps on bl Results Last 48 Hours of Labs: Laboratory Tests 11/17 11/16 0745 0705 Chemistry Sodium (137 - 145 mmol/L) 139 141 Potassium (3.5 - 5.1 mmol/L) 4.2 4.2 Chloride (98 - 107 mmol/L) 104 104 Carbon Dioxide (22 - 30 mmol/L) 28 26 Anion Gap (5 - 16) 7 10 BUN (9 - 20 mg/dL) 12 17 Creatinine (0.7 - 1.2 mg/dL) 0.8 0.9 Estimated GFR (>60 ml/min) > 60 > 60 BUN/Creatinine Ratio (7 - 25 %) 15.0 18.9 Lactic Acid (0.7 - 2.1 mmol/L) 0.9 Hematology CBC w Diff NO MAN DIFF REQ NO MAN DIFF REQ WBC (4.8 - 10.8 /CUMM) 7.3 7.0 RBC (4.70 - 6.10 /CUMM) 4.39 L 4.24 L Hgb (14.0 - 18.0 G/DL) 9.5 L 9.1 L Hct (42 - 52 %) 29.6 L 28.1 L MCV (80.0 - 94.0 FL) 67.5 L 66.3 L MCH (27.0 - 31.0 PG) 21.5 L 21.5 L MCHC (33.0 - 37.0 G/DL) 31.9 L 32.5 L RDW (11.5 - 14.5 %) 16.3 H 16.2 H Plt Count (130 - 400 /CUMM) 182 175 MPV (7.4 - 10.4 FL) 8.6 8.7 Gran % (42.2 - 75.2 %) 70.9 61.4 Lymphocytes % (20.5 - 51.1 %) 20.7 29.8 Monocytes % (1.7 - 9.3 %) 6.1 5.5 Eosinophils % (0 - 5 %) 1.9 2.7 Basophils % (0.0 - 2.0 %) 0.4 0.6 Absolute Granulocytes (1.4 - 6.5 /CUMM) 5.2 4.3 Absolute Lymphocytes (1.2 - 3.4 /CUMM) 1.5 2.1 Absolute Monocytes (0.10 - 0.60 /CUMM) 0.4 0.4 Absolute Eosinophils (0.0 - 0.7 /CUMM) 0.1 0.2 Absolute Basophils (0.0 - 0.2 /CUMM) 0 0 11/15 11/15 2155 2114 Chemistry Lactic Acid Cancelled Urines Urine Color (YEL,AMB,STR) YEL Urine Clarity (CLEAR) CLEAR Urine pH (5.0 - 8.0) 6.0 Ur Specific [place] (1.001 - 1.035) 1.010 Urine Protein (NEG,<30 MG/DL) NEG Urine Ketones (NEG) NEG Urine Nitrite (NEG) NEG Urine Bilirubin (NEG) NEG Urine Urobilinogen (0.1 - 1.0 EU/dl) 0.2 Ur Leukocyte Esterase (NEG) NEG Ur Microscopic EXAM NOT REQUIRED Urine Hemoglobin (NEG) NEG Urine Glucose (N MG/DL) NEG 11/15 11/15 1920 1826 Chemistry Sodium (137 - 145 mmol/L) 133 L Cancelled Potassium (3.5 - 5.1 mmol/L) 4.2 Cancelled Chloride (98 - 107 mmol/L) 94 L Cancelled Carbon Dioxide (22 - 30 mmol/L) 28 Cancelled Anion Gap (5 - 16) 11 Cancelled BUN (9 - 20 mg/dL) 19 Cancelled Creatinine (0.7 - 1.2 mg/dL) 0.9 Cancelled Estimated GFR (>60 ml/min) > 60 BUN/Creatinine Ratio (7 - 25 %) 21.1 Cancelled Glucose (65 - 99 mg/dL) 163 H Cancelled Lactic Acid (0.7 - 2.1 mmol/L) 1.6 Calcium (8.4 - 10.2 mg/dL) 9.2 Cancelled Total Bilirubin (0.2 - 1.3 mg/dL) 0.4 Cancelled AST (17 - 59 U/L) 31 Cancelled ALT (21 - 72 U/L) 13 L Cancelled Alkaline Phosphatase (< 127 U/L) 77 Cancelled Troponin I (<0.11 ng/ml) < 0.01 Total Protein (6.3 - 8.2 g/dL) 7.1 Cancelled Albumin (3.5 - 5.0 g/dL) 4.2 Cancelled Globulin (1.9 - 4.2 gm/dL) 2.9 Cancelled Albumin/Globulin Ratio (1.1 - 2.2 %) 1.4 Cancelled Coagulation PT (9.4 - 12.5 SEC) 11.7 INR (0.90 - 1.17) 1.07 APTT (25 - 37 SEC) 30 Hematology CBC w Diff NO MAN DIFF REQ WBC (4.8 - 10.8 /CUMM) 7.2 RBC (4.70 - 6.10 /CUMM) 5.24 Hgb (14.0 - 18.0 G/DL) 10.9 L Hct (42 - 52 %) 35.2 L MCV (80.0 - 94.0 FL) 67.2 L MCH (27.0 - 31.0 PG) 20.8 L MCHC (33.0 - 37.0 G/DL) 30.9 L RDW (11.5 - 14.5 %) 16.5 H Plt Count (130 - 400 /CUMM) 223 MPV (7.4 - 10.4 FL) 8.3 Gran % (42.2 - 75.2 %) 69.0 Lymphocytes % (20.5 - 51.1 %) 23.4 Monocytes % (1.7 - 9.3 %) 5.2 Eosinophils % (0 - 5 %) 1.9 Basophils % (0.0 - 2.0 %) 0.5 Absolute Granulocytes (1.4 - 6.5 /CUMM) 5.0 Absolute Lymphocytes (1.2 - 3.4 /CUMM) 1.7 Absolute Monocytes (0.10 - 0.60 /CUMM) 0.4 Absolute Eosinophils (0.0 - 0.7 /CUMM) 0.1 Absolute Basophils (0.0 - 0.2 /CUMM) 0 Assessment/Plan Assessment/Plan A- POD1 sp repair ventral hernia with mesh, stable with baseline dementia, awaiting meal and ambulation. P- ada diet as tolerated HL home meds prn pain meds hep sq, alps I&Os OOB, PT eval for DC recs titrate o2 labs reviewed dc planning will dw attending Core Measures Venous Thromboembolism VTE Risk Factors Age>40 No Mechanical VTE Prophylaxis d/t N/A MechProphylax Ordered No VTE Pharm Prophylaxis d/t Surgical Contraindication
[2017-11-17] MEDS ORDERED: PERCOCET 5-3251 EACH PO (12:51)
[2017-11-17 14:39] VITALS: BP 106/69
== END 2017-11-17 15:04 ==
LOC: ERH 17:59 → ERHI 11-16 01:03 → ENRESERV 11-16 02:14 → 2NA 11-16 02:58 → ENTRNSPT 11-16 21:33 → EDTRNSPTSTS 11-16 21:42 → CMPTRNSPT 11-16 22:09 → 2NA 11-17 11:17 → ENPENDDIS 11-17 12:52 → 2NA 11-17 15:04
PROVIDERS: Physician Assistant Medical; Physician Assistant Surgical
DX: K43.0 Incisional hernia with obstruction, without gangrene (principal); I10 Essential (primary) hypertension; Z79.82 Long term (current) use of aspirin; E78.5 Hyperlipidemia, unspecified; F32.9 Major depressive disorder, single episode, unspecified; K21.9 Gastro-esophageal reflux disease without esophagitis; N40.0 Benign prostatic hyperplasia without lower urinary tract symptoms; Z87.440 Personal history of urinary (tract) infections; E11.9 Type 2 diabetes mellitus without complications; G20 Parkinson's disease; F02.80 Dementia in other diseases classified elsewhere, unspecified severity, without behavioral disturbance, psychotic disturbance, mood disturbance, and anxiety; Z79.899 Other long term (current) drug therapy
CPT/HCPCS: 36592; 71045; 74177; 81003; 82436; 87804; 87804-59; 93005; 93010; 96360; 96372; 97161-GP; 97530-GP; C1781; G0378; G8978-GP; G8979-GP; J0131; J0690; J1644; J1815; J2405

== ENCOUNTER 2018-01-28 13:32 | Inpatient (IN) | payer OTHER, MEDICARE ==
[~2018-01-28] VITALS: Ht 175.3 cm; Wt 77.2 kg
[~2018-01-28 13:32] MED LIST changes: +CARBIDOPA-LEVO1 EAC9 PO; +PERCOCET 5-3251 EACH PO; +SINEMET 25-1001 EACH PO
[2018-01-28 14:43] LABS: ABSOLUTE BASOPHIL COUNT 0 /CUMM (0.0-0.2); ABSOLUTE EOSINOPHIL COUNT 0.1 /CUMM (0.0-0.7); ABSOLUTE GRANULOCYTE CT 6.1 /CUMM (1.4-6.5); ABSOLUTE LYMPH COUNT 1.4 /CUMM (1.2-3.4); ABSOLUTE MONOCYTE COUNT 0.6 /CUMM (0.10-0.60); BASOPHIL % 0.5 % (0.0-2.0); EOSINOPHIL % 0.8 % (0-5); GRANULOCYTE % 74.5 % (42.2-75.2); HEMATOCRIT 34.2 % (42-52); MEAN CORPUSCULAR HGB 21.2 PG (27.0-31.0); MEAN CORPUSCULAR HGB CONC 31.7 G/DL (33.0-37.0); MEAN CORPUSCULAR VOLUME 66.9 FL (80.0-94.0); MEAN PLATELET VOLUME 7.3 FL (7.4-10.4); PLATELET COUNT 260 /CUMM (130-400); RBC DISTRIBUTION WIDTH 16.2 % (11.5-14.5); RED BLOOD CELL CT 5.11 /CUMM (4.70-6.10); WHITE BLOOD CELL COUNT 8.3 /CUMM (4.8-10.8)
--- NOTE | 2018-01-28 14:46 | ED AMS/SEIZURE/WEAK/DIZZY ---
See Addendum History of Present Illness General Chief Complaint: Altered Mental Status Stated Complaint: AMS;HALUCINATIONS; WEAKNESS Source: old records Exam Limitations: confusion Vital Signs & Intake/Output Vital Signs & Intake/Output Vital Signs Date Time Temp Pulse Resp B/P B/P Pulse O2 O2 Flow FiO2 Mean Ox Delivery Rate 01/284 89 140/70 01/28 1945 98.6 84 20 140/70 92 Room Air 01/28 1816 98.3 89 20 140/73 91 Room Air 01/28 1613 98.4 89 16 134/70 93 Room Air 01/28 1407 97.8 90 20 119/74 94 Room Air Allergies Coded Allergies: NO KNOWN ALLERGIES (04/10/15) Triage Note: PER FOOD AND BEVERAGE MANAGER SAW DR GONSALVES YESTERDAY FOR "WEAKNESS" UNABLE TO GET URINE PT WEARS [place] CATH AND DID NOT OBTAIN URINE PER CAREGIVER THIS AM MORE CONFUSED PT IN TRIAGE CONFUSED CALM AND COOP DISCUSSING BASEBALL NOT REPORTED HALLUCINATIONS Triage Nurses Notes Reviewed? yes Onset: Gradual Duration: getting worse Timing: recent history Severity: moderate Severity Numbers: 5 HPI: Patient is a 87-year-old male with a past medical history of hypertension hyperlipidemia and diabetes type 2, Parkinson's disease depression GERD frequent UTIs who per old records also indicates that on 11/16/2017 patient had surgical intervention due to incarcerated small bowel containing incisional and periumbilical hernia performed by surgeon Dr. Simpson Who presents emergency room with caregiver for concerns of a 3 day history of gradually worsening confusion Patient AID USES a [place] catheter administration No blood noted by aid last bowel movement was 2 days ago no blood normal consistency. No signs of specific infection per her aid denies any fever chills cough abdominal pain nausea vomiting or pain. No new medications per the aide. Caregiver also states that patient has had a significant decline in the past 3 days of generalized weakness and assistance upon ambulation and weightbearing activities (Laurent Arteaga) Reconcile Medications Aspirin (Ecotrin*) 81 MG TABLET.DR 1 TAB PO QPM HEART/BLOOD (Reported) Carbidopa/Levodopa (Carbidopa-Levo ER 50-200 Tab) 50 MG-200 MG TABLET.ER 1 TAB PO TID PARKINSONS (Reported) Citalopram Hydrobromide (Citalopram HBr) 40 MG TABLET 1.5 TAB PO QPM DEPRESSION (Reported) Fludrocortisone Acetate 0.1 MG TABLET 1 TAB PO DAILY BP (Reported) Gabapentin (Neurontin) 300 MG CAPSULE 1 CAP PO BID NEUROPATHY (Reported) Mirabegron (Myrbetriq) 25 MG TAB.ER.24H 1 TAB PO QAM BPH (Reported) Pantoprazole Sodium (Protonix) 40 MG TABLET.DR 1 TAB PO QAM GI (Reported) Simvastatin (Zocor*) 20 MG TABLET 1 TAB PO QPM CHOLESTEROL (Reported) Tamsulosin HCl (Flomax) 0.4 MG CAP.ER.24H 1 CAP PO QPM BPH (Reported) (Kael Easton DO) Past History Travel History Traveled to [place] past 21 day No Medical History Any Pertinent Medical History? see below for history Neurological: Parkinson's disease EENT: NONE Cardiovascular: hypertension, hyperlipidemia Respiratory: NONE Gastrointestinal: diverticulitis Hepatic: NONE Renal: NONE Musculoskeletal: NONE Psychiatric: NONE Endocrine: diabetes Blood Disorders: NONE Cancer(s): NONE TRUCK SERVICE MANAGER/Reproductive: NONE History of MRSA: No History of VRE: No History of CDIFF: No Tetanus Vaccine: 02/17/15 Surgical History Surgical History: appendectomy, hernia repair-inguinal Psychosocial History Who do you live with Spouse Services at Home Home Health Aide What is your primary language [place] Tobacco Use: Quit >30 days ago Family History Family History, If Any: BROTHER (Patient has 2 brothers who were diagnosed with diabetes). Hx Contributory? No (Laurent Arteaga) Review of Systems Review of Systems Constitutional: Reports: see HPI. EENTM: Reports: no symptoms. Respiratory: Reports: no symptoms. Cardiovascular: Reports: no symptoms. GI: Reports: no symptoms. Genitourinary: Reports: no symptoms. Musculoskeletal: Reports: no symptoms. Skin: Reports: no symptoms. Neurological/Psychological: Reports: no symptoms. Hematologic/Endocrine: Reports: no symptoms. Immunologic/Allergic: Reports: no symptoms. All Other Systems: Reviewed and Negative (Laurent Arteaga) Physical Exam Physical Exam General Appearance: no apparent distress, alert, comfortable Head: atraumatic Eyes: Bilateral: normal appearance, PERRL, EOMI. Ears, Nose, Throat: normal ENT inspection, hearing grossly normal Neck: normal inspection, no midline tenderness Respiratory: normal breath sounds, chest non-tender, no respiratory distress Cardiovascular: regular rate/rhythm Gastrointestinal: soft, tenderness Extremities: normal range of motion Neurologic/Psych: no motor/sensory deficits, awake, disoriented x 3 Skin: intact, normal color Comments: Bilateral upper and lower extremity full active range of motion Core Measures ACS in differential dx? No CVA/TIA Diagnosis No Sepsis Present: No Sepsis Focused Exam Completed? No (Farhana ADAMSON,Laurent) Progress Differential Diagnosis: arrythmia, alcohol intoxication, anemia, benign positional vertigo, CVA/stroke, dehydration, drug intoxication, encephalitis, electrolyte imbalance, GI bleed, hypoglycemia, hypoxia, intracranial Hem., intracranial mass/tumor, labrynthitis, meningitis, Meniere's disease, migraine NOLAND, multiple sclerosis, pneumonia, postural hypotension, presyncope, post- traumatic vertigo, sepsis, seizure disorder, subarachnoid Hem., UTI/pyelo, vertebrobasilar insuff Plan of Care: Orders Procedure Date/time Status Heart Healthy Diet 01/29 B Active Turn and Reposition 01/28 2223 Active Skin Integrity Protocol 01/28 2223 Active Weight 01/29 1936 Active Vital Signs 01/29 1936 Active Teach/Educate 01/29 1936 Active Pain Treatment and Response 01/29 1936 Active Nutritional Intake, Monitor 01/29 1936 Active Isolation 01/29 1936 Active Intake & Output 01/29 1936 Active Patient Care Conference 01/28 193 Active Activity/Ambulation 01/28 193 Active Straight Cath 01/28 192 Active Code Status 01/28 1917 Active Pathway - chart 01/28 1739 Active House Staff 01/28 1739 Active Patient Data 01/28 173 Active Code Status 01/28 1739 Complete Patient Data 01/28 1738 Active ED Holding Orders 01/28 1708 Active Admit to inpatient 01/28 1708 Active Vital Signs 01/28 1708 Active Code Status 01/28 1708 Complete Intake & Output 01/28 1525 Active EKG 01/28 1504 Active CULTURE,URINE 01/28 1455 Active VDRL 01/28 1432 Active THYROID STIMULATING HORMONE 01/28 1432 Active GLYCOSYLATED HGB 01/28 1432 Active FREE T4 01/28 1432 Active VITAMIN B12 01/28 1432 Active URINE DRUG SCREEN FOR ER ONLY 01/28 1336 Complete URINALYSIS 01/28 1336 Complete TROPONIN LEVEL 01/28 1336 Active ETHANOL 01/28 1336 Active COMPREHENSIVE METABOLIC PANEL 01/28 1336 Active CBC WITHOUT DIFFERENTIAL 01/28 1336 Complete Lab Add-on Test 01/28 UNK Active VTE Mechanical Prophylaxis 01/28 UNK Active FingerStick- Glucose 01/28 UNK Active Current Medications Sig/Eduin Start time Last Medication Dose Stop Time Status Admin Atorvastatin Calcium 10 MG 1700 01/29 1700 AC (Lipitor) Fludrocortisone 100 MCG DAILY 01/29 0900 AC Acetate (Florinef 100 Mcg Tab) Insulin Aspart 0 TIDAC 01/29 0800 AC (NovoLOG) Omeprazole 40 MG DAILY AC 01/29 0700 AC (Prilosec) Aspirin Buffered 81 MG QPM 01/28 2100 AC 01/28 (Ecotrin) 2142 Carbidopa/Levodopa 1 TAB TID 01/28 2100 AC 01/28 (Sinemet CR 50/200MG) 214 Citalopram 60 MG QPM 01/28 2100 AC Hydrobromide (Celexa) Erythromycin 1 HAMZAH 4 TIMES/DAY 01/28 2100 AC 01/28 (Erythromycin Oph 2142 Ointment) Tamsulosin HCl 0.4 MG QPM 01/28 2100 AC 01/28 (Flomax) 214 Sodium Chloride 1,000 ML Q13H 01/28 1830 AC 01/28 (Normal Saline 0.9%) 214 Enoxaparin Sodium 40 MG DAILY 01/28 1739 AC 01/28 (Lovenox) 2142 Laboratory Tests 01/28/18 1520: Urine Opiates Screen < 100, Methadone Screen 82, Barbiturate Screen < 60, Ur Phencyclidine Scrn < 6.00, Amphetamines Screen 126, U Benzodiazepines Scrn < 85, Urine Cocaine Screen < 50, Urine Cannabis Screen < 5.00, Urine Color YEL, Urine Clarity CLEAR, Urine pH 6.0, Ur Specific [place] 1.020, Urine Protein NEG, Urine Ketones NEG, Urine Nitrite NEG, Urine Bilirubin NEG, Urine Urobilinogen 0.2, Ur Leukocyte Esterase NEG, Ur Microscopic EXAM NOT REQUIRED, Urine Hemoglobin NEG, Urine Glucose NEG 01/28/18 1432: Anion Gap 14, Estimated GFR > 60, BUN/Creatinine Ratio 22.5, Glucose 178 H, Hemoglobin A1c Pending, Calcium 9.2, Total Bilirubin 0.7, AST 27, ALT < 6 L, Alkaline Phosphatase 71, Troponin I < 0.01, Total Protein 7.2, Albumin 4.3, Globulin 2.9, Albumin/Globulin Ratio 1.5, Vitamin B12 764, TSH 2.560, Free T4 1.17, CBC w Diff NO MAN DIFF REQ, RBC 5.11, MCV 66.9 L, MCH 21.2 L, MCHC 31.7 L, RDW 16.2 H, MPV 7.3 L, Gran % 74.5, Lymphocytes % 17.3 L, Monocytes % 6.9, Eosinophils % 0.8, Basophils % 0.5, Absolute Granulocytes 6.1, Absolute Lymphocytes 1.4, Absolute Monocytes 0.6, Absolute Eosinophils 0.1, Absolute Basophils 0, RPR Titer/FTA Pending, Serum Alcohol < 10.0 Microbiology 01/28 1520 URINE ROUT: Urine Culture - RECD Patient had initial presentation was pleasantly demented no signs of infectious process patient was afebrile clear lungs auscultation patient was following all commands appropriately however was disoriented 3. No new medications. The aide was present. No concerns of the neurovascular impairment at this time. Patient upon initial palpation of abdomen Saturday due to pain patient will receive CT scan head chest abdomen. It is noted the patient was unable to ambulate due to severe weakness upon evaluation of ambulatory status. In the emergency room there are no overt findings of infectious process in which admission will be warranted for further investigation of patient decline in ambulatory and physical status Discussed patient with Dr. EASTON who is aware and agrees PT WAS discussed with case management Diagnostic Imaging: Viewed by Me: CT Scan. Radiology Impression: SEE COMMENTS Initial ED EKG: normal intervals, normal p-waves, 88 BPM,NSR Comments: PATIENT: EDIN GOMEZ PRESENT AGE: 87 PATIENT ACCOUNT NO: [id number] : 31 LOCATION: [facility] ORDERING PHYSICIAN: Laurent ADAMSON SERVICE DATE: 01/28/180873 EXAM TYPE: CAT - CT ABD & PELVIS W/O IV CONTRAS; CT CHEST WO IV CONTRAST EXAMINATION: CT CHEST WITHOUT CONTRAST CT ABDOMEN AND PELVIS WITHOUT CONTRAST CLINICAL INFORMATION: Confusion. Altered mental status. Abdominal pain. COMPARISON: 11/15/[address] from 02/02/2016. TECHNIQUE: Multidetector volumetric imaging was performed through the chest, abdomen and pelvis without contrast. Sagittal and coronal reformatted images were obtained on the technologist's workstation. Axial MIP volume rendering provided. DLP: 548 mGy-cm. FINDINGS: CHEST: Lungs: The central airways are patent. There is bibasilar subsegmental atelectasis. No dense consolidation. No pleural effusion or pneumothorax. Mediastinum: The heart is normal in size. Dense coronary artery calcifications are present. No pericardial effusion. No mediastinal lymphadenopathy. The thyroid gland is unremarkable. Chest Wall/Axilla: No lymphadenopathy. No chest wall mass. ABDOMEN/PELVIS: Liver, Gallbladder, Biliary Tree: The liver is normal in size, shape, and attenuation. No focal hepatic lesion or biliary ductal dilatation is present. The gallbladder is not seen, possibly absent. This is unchanged. Pancreas: Mild atrophy of the pancreatic parenchyma with no focal abnormality. Spleen: Unremarkable. Adrenal Glands: Unremarkable. Kidneys and Ureters: The kidneys are normal in size, shape, and attenuation. No hydronephrosis, hydroureter or calculi seen. No perinephric stranding. Bladder: Unremarkable. Gastrointestinal Tract: The stomach is unremarkable. Probable duodenal diverticulum again noted. The small bowel is normal in caliber. There is no obstruction. There is no colonic wall thickening or inflammatory change. Mild colonic stool burden. Diverticulosis of the sigmoid colon and descending colon. No diverticulitis. Distal colonic anastomosis noted. No free air or free fluid. Abdominal Wall: No hernia is demonstrated. Lymphovascular Structures: Lymph nodes: Normal. Vascular: Normal caliber aorta with mild arthroscopic calcification. Pelvic Viscera: The prostate and seminal vesicles are unremarkable. OSSEOUS STRUCTURES: No suspicious sclerotic or lytic bone lesions are identified. Degenerative changes are seen throughout the spine. Mild compression deformity of the T2 vertebral body noted. There is approximately 30% loss of vertebral body height. Mild degenerative changes in the hips. IMPRESSION: Mild compression deformity of the T2 vertebral body. While this is of uncertain chronicity, this is new compared to 02/02/2016. Correlate with location of pain.. Bibasilar atelectasis in the lungs. No consolidation. Colonic diverticulosis without diverticulitis. Mild colonic stool burden. DICTATED BY: Darin ALLAN,Geo DATE/TIME DICTATED:01/28/181531 MANIFOLD BUILDER:ZAHRA DATE/TIME TRANSCRIBED:01/28/181531 CONFIDENTIAL, DO NOT COPY WITHOUT APPROPRIATE AUTHORIZATION. PATIENT: EDIN GOMEZ PRESENT AGE: 87 PATIENT ACCOUNT NO: [id number] : 31 LOCATION: [facility] ORDERING PHYSICIAN: Laurent ADAMSON SERVICE DATE: 01/28/18637 EXAM TYPE: CAT - CT HEAD WO IV CONTRAST EXAMINATION: CT HEAD WITHOUT CONTRAST CLINICAL INFORMATION: Confusion. COMPARISON: 08/15/2017. TECHNIQUE: Contiguous helical images of the brain were obtained without IV contrast. DLP: 674 mGy-cm. FINDINGS: There are no pathologic extra-axial fluid collections. The lateral, third, fourth ventricles are stable, age-appropriate and concordant with the appearance of the sulci. There is no evidence for acute intraparenchymal hemorrhage or infarct. There is periventricular low-attenuation indicative small vessel disease. There is neither mass nor mass effect. There is no shift of midline structures. The paranasal sinuses and mastoid air cells are clear. There are no osseous lesions. IMPRESSION: No evidence for acute intracranial injury. Stable age-appropriate appearance of the brain. DICTATED BY: Sylvester Robin MD DATE/TIME DICTATED:01/28/181528 MANIFOLD BUILDER:ZAHRA DATE/TIME TRANSCRIBED:01/28/18 / (Laurent Arteaga) Departure Departure Disposition: STILL A PATIENT Condition: Stable Clinical Impression Primary Impression: Altered mental state Secondary Impressions: Confusion, Multifactorial gait disorder, Weakness Referrals: Kaylen ALLAN,Otis Powell (PCP/Family) Departure Forms: Customer Survey General Discharge Information Admission Note Spoke With: Jesse ALLAN,Lizeth Documentation of Exam: Documentation of any treatments & extenuating circumstances including Concerns Regarding Discharge (functional status, medication knowledge or non-compliance, living conditions, etc.) that warrant an admission rather than observation: [PT REQUIRES ADMISSION FOR concerns of significant decline in his physical active daily living and ambulatory status, patient requires repeat labs physical therapy consultation case management consultation dietary consultation and possible short-term rehabilitation ] (Laurent Arteaga) PA/LEAK DETECTION ENGINEER Co-Sign Statement Statement: ED Attending supervision documentation- [X] I saw and evaluated the patient. I have also reviewed all the pertinent lab results and diagnostic results. I agree with the findings and the plan of care as documented in the PA's/LEAK DETECTION ENGINEER's documentation. [] I have reviewed the ED Record and agree with the PA's/LEAK DETECTION ENGINEER's documentation. [] Additions or exceptions (if any) to the PAs/LEAK DETECTION ENGINEER's note and plan are summarized below: [] Patient is confused. He has no focal weakness. He has global weakness. He has had similar episodes to this in the past. The last time it was secondary to infection. (Kale Easton DO)
[2018-01-28] MEDS ORDERED: FLUDROCORTISON0.1 M1 PO (15:28)
--- NOTE | 2018-01-28 15:34 | CT SCAN REPORT ---
EXAMINATION: CT HEAD WITHOUT CONTRAST CLINICAL INFORMATION: Confusion. COMPARISON: 08/15/2017. TECHNIQUE: Contiguous helical images of the brain were obtained without IV contrast. DLP: 674 mGy-cm. FINDINGS: There are no pathologic extra-axial fluid collections. The lateral, third, fourth ventricles are stable, age-appropriate and concordant with the appearance of the sulci. There is no evidence for acute intraparenchymal hemorrhage or infarct. There is periventricular low-attenuation indicative small vessel disease. There is neither mass nor mass effect. There is no shift of midline structures. The paranasal sinuses and mastoid air cells are clear. There are no osseous lesions. IMPRESSION: No evidence for acute intracranial injury. Stable age-appropriate appearance of the brain.
--- NOTE | 2018-01-28 15:42 | CT SCAN REPORT ---
EXAMINATION: CT CHEST WITHOUT CONTRAST CT ABDOMEN AND PELVIS WITHOUT CONTRAST CLINICAL INFORMATION: Confusion. Altered mental status. Abdominal pain. COMPARISON: 11/15/[address] from 02/02/2016. TECHNIQUE: Multidetector volumetric imaging was performed through the chest, abdomen and pelvis without contrast. Sagittal and coronal reformatted images were obtained on the technologist's workstation. Axial MIP volume rendering provided. DLP: 548 mGy-cm. FINDINGS: CHEST: Lungs: The central airways are patent. There is bibasilar subsegmental atelectasis. No dense consolidation. No pleural effusion or pneumothorax. Mediastinum: The heart is normal in size. Dense coronary artery calcifications are present. No pericardial effusion. No mediastinal lymphadenopathy. The thyroid gland is unremarkable. Chest Wall/Axilla: No lymphadenopathy. No chest wall mass. ABDOMEN/PELVIS: Liver, Gallbladder, Biliary Tree: The liver is normal in size, shape, and attenuation. No focal hepatic lesion or biliary ductal dilatation is present. The gallbladder is not seen, possibly absent. This is unchanged. Pancreas: Mild atrophy of the pancreatic parenchyma with no focal abnormality. Spleen: Unremarkable. Adrenal Glands: Unremarkable. Kidneys and Ureters: The kidneys are normal in size, shape, and attenuation. No hydronephrosis, hydroureter or calculi seen. No perinephric stranding. Bladder: Unremarkable. Gastrointestinal Tract: The stomach is unremarkable. Probable duodenal diverticulum again noted. The small bowel is normal in caliber. There is no obstruction. There is no colonic wall thickening or inflammatory change. Mild colonic stool burden. Diverticulosis of the sigmoid colon and descending colon. No diverticulitis. Distal colonic anastomosis noted. No free air or free fluid. Abdominal Wall: No hernia is demonstrated. Lymphovascular Structures: Lymph nodes: Normal. Vascular: Normal caliber aorta with mild arthroscopic calcification. Pelvic Viscera: The prostate and seminal vesicles are unremarkable. OSSEOUS STRUCTURES: No suspicious sclerotic or lytic bone lesions are identified. Degenerative changes are seen throughout the spine. Mild compression deformity of the T2 vertebral body noted. There is approximately 30% loss of vertebral body height. Mild degenerative changes in the hips. IMPRESSION: Mild compression deformity of the T2 vertebral body. While this is of uncertain chronicity, this is new compared to 02/02/2016. Correlate with location of pain.. Bibasilar atelectasis in the lungs. No consolidation. Colonic diverticulosis without diverticulitis. Mild colonic stool burden.
--- NOTE | 2018-01-28 17:47 | History & Physical ---
Kg ALLAN,[facility] 01/28/18 2196: General Information and HPI MD Statement: I have seen and personally examined EDIN VÁZQUEZ and documented this H&P. The patient is a 87 year old M who presented with a patient stated chief complaint of [AMS]. Source of Information: family Exam Limitations: confusion, dementia, poor historian, language barrier History of Present Illness: Mr. Vázquez is 86-year-old male with past medical history of Parkinson's disease, hypertension, hyperlipidemia, diabetes mellitus, diverticulitis, GERD, and depression who presents with confusion. Patient is confused upon interviewing. Most of the history is obtained from the and daughter over the phone and at bedside respectively. According to the he was in his usual state of health until yesterday, patient was seen by health aide wound thought he was more confused and took him to the primary care physician. But the doesn't know what treatment was given during that visit. Today morning health aide came and saw that he was more confused compared to yesterday and decided to bring him to [facility]. Off note patient has been admitted for confusion in August 2017 during that time patient had UTI [enterococcus]. At baseline patient has parkinsonism and dementia. He uses walker for ambulation. Allergies/Medications Allergies: Coded Allergies: NO KNOWN ALLERGIES (04/10/15) Home Med list Aspirin (Ecotrin*) 81 MG TABLET.DR 1 TAB PO QPM HEART/BLOOD (Reported) Carbidopa/Levodopa (Carbidopa-Levo ER 50-200 Tab) 50 MG-200 MG TABLET.ER 1 TAB PO TID PARKINSONS (Reported) Citalopram Hydrobromide (Citalopram HBr) 40 MG TABLET 1.5 TAB PO QPM DEPRESSION (Reported) Fludrocortisone Acetate 0.1 MG TABLET 1 TAB PO DAILY BP (Reported) Gabapentin (Neurontin) 300 MG CAPSULE 1 CAP PO BID NEUROPATHY (Reported) Mirabegron (Myrbetriq) 25 MG TAB.ER.24H 1 TAB PO QAM BPH (Reported) Pantoprazole Sodium (Protonix) 40 MG TABLET.DR 1 TAB PO QAM GI (Reported) Simvastatin (Zocor*) 20 MG TABLET 1 TAB PO QPM CHOLESTEROL (Reported) Tamsulosin HCl (Flomax) 0.4 MG CAP.ER.24H 1 CAP PO QPM BPH (Reported) Compliance With Home Meds: FAIR Past History Travel History Traveled to [place] past 21 day No Medical History Neurological: Parkinson's disease EENT: NONE Cardiovascular: hypertension, hyperlipidemia Respiratory: NONE Gastrointestinal: diverticulitis Hepatic: NONE Renal: NONE Musculoskeletal: NONE Psychiatric: NONE Endocrine: diabetes Blood Disorders: NONE Cancer(s): NONE WILDLIFE MANAGEMENT PROFESSOR/Reproductive: NONE History of MRSA: No History of VRE: No History of CDIFF: No Tetanus Vaccine: 02/17/15 Surgical History Surgical History: appendectomy, hernia repair-inguinal Past Family/Social History Family History Relations & Conditions if any BROTHER (Patient has 2 brothers who were diagnosed with diabetes). Psychosocial History Services at Home: Home Health Aide Primary Language: Maori Living Will? unknown Functional Ability ADLs Needs Assist: dressing, eating, toileting, bathing. Ambulation: independent IADLs Needs Assist: shopping, housework, finances, food prep, telephone, transportation, medication admin. Review of Systems Review of Systems Constitutional: Reports: no symptoms. Cardiovascular: Reports: no symptoms. Respiratory: Reports: no symptoms. GI: Reports: no symptoms. Genitourinary: Reports: no symptoms. Musculoskeletal: Reports: no symptoms. Exam & Diagnostic Data Last 24 Hrs of Vital Signs/I&O Vital Signs Date Time Temp Pulse Resp B/P B/P Pulse O2 O2 Flow FiO2 Mean Ox Delivery Rate 01/28 1816 98.3 89 20 140/73 91 Room Air 01/28 1613 98.4 89 16 134/70 93 Room Air 01/28 1407 97.8 90 20 119/74 94 Room Air Intake & Output 01/28 1600 01/28 0800 01/28 0000 Intake Total Output Total 200 Balance -200 Output, Urine 200 Physical Exam General Appearance Alert, Cooperative, No Acute Distress Cardiovascular Regular Rate, Normal S1, Normal S2, No Murmurs Lungs Normal Air Movement Abdomen Soft, No Tenderness, No Hepatospenomegaly Neurological Normal Speech, , ALERT, NOT ORIENTED * 3 Last 24 Hrs of Labs/Tom: Laboratory Tests 01/28/18 1520: Urine Opiates Screen < 100, Methadone Screen 82, Barbiturate Screen < 60, Ur Phencyclidine Scrn < 6.00, Amphetamines Screen 126, U Benzodiazepines Scrn < 85, Urine Cocaine Screen < 50, Urine Cannabis Screen < 5.00, Urine Color YEL, Urine Clarity CLEAR, Urine pH 6.0, Ur Specific [place] 1.020, Urine Protein NEG, Urine Ketones NEG, Urine Nitrite NEG, Urine Bilirubin NEG, Urine Urobilinogen 0.2, Ur Leukocyte Esterase NEG, Ur Microscopic EXAM NOT REQUIRED, Urine Hemoglobin NEG, Urine Glucose NEG 01/28/18 1432: Anion Gap 14, Estimated GFR > 60, BUN/Creatinine Ratio 22.5, Glucose 178 H, Hemoglobin A1c Pending, Calcium 9.2, Total Bilirubin 0.7, AST 27, ALT < 6 L, Alkaline Phosphatase 71, Troponin I < 0.01, Total Protein 7.2, Albumin 4.3, Globulin 2.9, Albumin/Globulin Ratio 1.5, CBC w Diff NO MAN DIFF REQ, RBC 5.11, MCV 66.9 L, MCH 21.2 L, MCHC 31.7 L, RDW 16.2 H, MPV 7.3 L, Gran % 74.5, Lymphocytes % 17.3 L, Monocytes % 6.9, Eosinophils % 0.8, Basophils % 0.5, Absolute Granulocytes 6.1, Absolute Lymphocytes 1.4, Absolute Monocytes 0.6, Absolute Eosinophils 0.1, Absolute Basophils 0, Serum Alcohol < 10.0 Microbiology 01/28 1520 URINE ROUT: Urine Culture - RECD Assessment/Plan Assessment: Mr. Vázquez is 86-year-old male with past medical history of Parkinson's disease, hypertension, hyperlipidemia, diabetes mellitus, diverticulitis, GERD, and depression who presents with confusion Assessment and plan Altered mental status * Admitted in [facility] * His altered mental status can be secondary due to medications, dehydration. At present patient's electrolytes appears to be stable. Patient's daughter denies any new medication use. It doesn't appear he is having any infection. Patient has a [place] catheter. We can straight catheter him and send urine culture. We have to note that patient at baseline has dementia/Parkinson's disease. Not able to confirm his baseline mentation.Doesnt appear that he has delrium. * Continue all his home medication except for gabapentin and mIRABIGRON. * Code-DNR/DNI * Diet-regular diet * DVT prophylaxis-Lovenox As Ranked By This Provider Problem List: 1. Confusion Core Measures/Misc (05/26) Acute Coronary Syndrome ACS Diagnosis: No Congestive Heart Failure Congestive Heart Failure Diagnosis No Cerebrovascular Accident CVA/TIA Diagnosis: No VTE (View Protocol) VTE Risk Factors Other No Mechanical VTE Prophylaxis d/t Other No VTE Pharm Prophylaxis d/t Other Sepsis (View protocol) Sepsis Present: No If YES complete Sepsis Event Note If YES complete Sepsis Event Note Jesse ALLAN,Lizeth 01/28/18 0060: Core Measures/Misc (05/26) Sepsis (View protocol) If YES complete Sepsis Event Note If YES complete Sepsis Event Note Attending MD Review Statement Attending Statement Attending MD Statement: examined this patient, discuss w/resident/PA/LEGAL EDITOR, agreed w/resident/PA/LEGAL EDITOR, reviewed EMR data (avail), discussed with nursing Attending Assessment/Plan: Patient seen and examined. Plan of care discussed with the medical team and the patient. Available lab work and radiology test reports were reviewed. This is 87-year-old male who lives with his and has a 24-hour aide at home. Patient has a past history of hypertension hyperlipidemia diabetes Parkinson's disease, dementia depression and GERD and also has history of prior UTIs. Patient recently was seen by his PCP for generalized weakness and a UA was requested but apparently simple was not submitted. Today patient is 9 felt that he was more confused and disoriented and he was brought to emergency room. His vital signs upon presentation were stable and he was found to be afebrile. He appears confused and disoriented but follows command and there is no lateralizing weakness. This exam is essentially is clear without any wheezing abdomen is soft with possible bladder distention. His lab work does not suggest any acute infection. CT head was negative for any acute intracranial injury or bleed. CT chest shows mild compression of T2 and basilar atelectasis. CT abdomen and pelvis shows diverticulosis. It was noted the patient was recently started on a mirabegron possibly for urge incontinence. Overall impression is acute delirium of unclear etiology; Mirebegron as a antimuscarinic agent could be implicated. We'll hold this medication as well as gabapentin. Will slowly hydrate with IV normal saline 1 L. We'll reassess mental status in a.m. Please do a bladder scan and also post void residual. If patient has significant residual he may need a [place] catheter or straight cath protocol. Betty ALLAN,Mirella 01/28/18 7124: General Information and HPI MD Statement: I have seen and personally examined EDIN VÁZQUEZ and documented this H&P. The patient is a 87 year old M who presented with a patient stated chief complaint of []. Core Measures/Misc (05/26) Sepsis (View protocol) If YES complete Sepsis Event Note If YES complete Sepsis Event Note Resident Review Statement Resident Statement: examined this patient, discussed with internal audit director, agreed with internal audit director, discussed with family Other Findings: Patient is an 87-year-old male who brought into the ED after found to have altered mental status since one day. Patient was not oriented to time place and person, so most of the history is taken from the daughter and Aid DANISHA([phone]). According to them patient lives with the family including and cat and helped by 24 hour aide at home. He was completely all right 24 hours ago. Yesterday morning he was having episodes of altered behavior including hallucination. That is why he took him to Dr. Abdullahi. Otis Abdullahi MD, suggested that he is completely fine so patient can go home. In the evening he will remain altered, but able to sleep in the night, but his mental status was continuously deteriorated so they brought him [facility]. He denies for any fever, chills, nausea, vomiting, sick contact, constipation, diarrhea, shortness of breath, addition of any new medication, using over-the- counter medication, fall, seizures. He is on [place] catheter since last 6 months. He usually urinates 1-2 L in a day but recently his urine becomes darker. He did have bowel movement on Saturday. OFF note - Resagiline has been stopped 2 weeks ago. Tab fludrocortisone has been decreased 0.1mg once a day. He has pain in back since last week. 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 He was oriented to time place and person. Personal history -lives with the family and need help with the aid, for 24 hours. ED course - Vital signs at the time of admission-temperature 97.8, pulse 90, respiratory 20, blood pressure 119/74, SPO2 94% on room air. On physical examination -patient was not oriented to time place and person but he had the remote memory. His eyes were sticky having secretions, oral cavity dry, chest -bilateral clear, heart S1-S2 normal, abdomen soft, bowel sounds positive, neurological examination -whole body was stiff, unable to get the reflexes and power. Blood workup -WBC 8.3, hemoglobin 10.8, hematocrit 34.2, MCV 66.9, platelet count 260, granulocyte 74.5, serum sodium 139, potassium 3.9, chloride 98, carbon DEXA 28, anion gap 14, BUN 18, creatinine 0.8, glucose 178, calcium 9.2, total bilirubin 0.7, AST 27, ALT less than 6, alkaline phosphatase -71, troponin I less than 0.01, albumin 4.3, U tox was negative, serum alcohol was negative, urinalysis was negative for -infection. CT head -No evidence for acute intracranial injury. Stable age-appropriate appearance of the brain. CT chest -mild compression deformity of T2 vertebral. Bibasilar atelectasis in the lung. CT abdomen and pelvis -colonic diverticulosis without diverticulitis, mild colonic stool burden. Assessment and plan - Patient is 87-year-old male with multiple medical problems presented with altered mental status. His blood workup was within normal limits, CT scan did show evidence of mild compression deformity at T2, but there is no history of any fall or trauma. He had bowel movements 2-3 days ago and urinating well, but recently urine look dark. His urinalysis does not show any evidence of infection. Seems may be dehydration or antiparkinsonian medication made him altered. Plan - Altered mental status probably secondary to dehydration, or antiparkinsonian medication - * We will admit the patient to general medicine floor * We will hold gabapentin for now * IV fluids normal saline 75 cc/h * Strict intake output charting * Straight cath -q6 * Vitals every shift * Keep head end of the bed elevated * Erythromycin ointment in both eyes. * Patient did not improve then we will consider neurology evaluation Mild compression deformity of the T2 * Probably age-related, osteoporotic compression fracture? Cannot comment on trauma as healthy denied for any fall. * Pain management as needed avoid Tylenol Chronic medical conditions -hypertension, hyperlipidemia, Parkinson's, orthostatic hypotension, urinary incontinence * We will continue all home medications except gabapentin CODE STATUS-DNR/DNI Diet-diabetic diet DVT prophylaxis-ALPS/heparin
--- NOTE | 2018-01-28 18:45 | Admission Certification ---
Admission Certification Certification Statement - As attending physician, I certify that at the time of - admission, based on clinical presentation, severity of - symptoms, need for further diagnostic testing and - therapeutic interventions, and risk of adverse outcomes - without in-hospital treatment, in my clinical assessment, - this patient requires an acute hospital stay for a minimum - of two nights or longer. I have also considered psychsocial - factors such as support system, advanced age, financial - issues, cognitive issues, and failed out-patient treatments, - past re-admission history, safety of patient, and lack of - compliance as applicable. Specific rationale supporting this admission is: Acute delirium likely related to medication
[2018-01-28 19:45] VITALS: BP 140/70
[2018-01-29 06:20] VITALS: BP 132/70
--- NOTE | 2018-01-29 07:42 | PN- Housestaff ---
Kg ALLAN,Cheri 01/29/18 0742: Subjective Follow-up For: altered mental status Subjective: Patient seen and examined at bedside. No overnight events. At baseline patient is confused and has dementia. Patient is alert, awake oriented 1. Review of Systems Constitutional: Reports: no symptoms, see HPI. Objective Last 24 Hrs of Vital Signs/I&O Vital Signs Date Time Temp Pulse Resp B/P B/P Pulse O2 O2 Flow FiO2 Mean Ox Delivery Rate 01/29 06 98.9 75 20 132/70 92 Room Air 01/28 2144 89 140/70 01/28 1945 98.6 84 20 140/70 92 Room Air 01/28 1816 98.3 89 20 140/73 91 Room Air 01/28 1613 98.4 89 16 134/70 93 Room Air 01/28 1407 97.8 90 20 119/74 94 Room Air Intake & Output 01/29 1600 01/29 0800 01/29 0000 Intake Total 1005 150 Output Total Balance 1005 150 Intake, IV 525 150 Intake, Oral 480 Number 2 Bowel Movements Patient 170 lb 170 lb Weight Weight Bed scale Bed scale Measurement Method Physical Exam General Appearance: Alert, Oriented X3, Cooperative Cardiovascular: Regular Rate, Normal S1, Normal S2, No Murmurs Lungs: Clear to Auscultation Abdomen: Normal Bowel Sounds, Soft, No Tenderness Neurological: Normal Speech Extremities: No Cyanosis, No Edema, Normal Pulses Current Medications: Current Medications Sig/Eduin Start time Last Medication Dose Route Stop Time Status Admin Acetaminophen 0 .STK-MED ONE 01/28 1731 DC PO Acetaminophen 650 MG ONCE ONE 01/28 1730 DC 01/28 PO 01/28 173 1730 Aspirin Buffered 81 MG QPM 01/28 2100 AC 01/28 PO 2143 Atorvastatin Calcium 10 MG 1700 01/29 1700 AC PO Carbidopa/Levodopa 1 TAB TID 01/28 2100 AC 01/29 PO 0932 Citalopram 60 MG QPM 01/28 2100 AC Hydrobromide PO Enoxaparin Sodium 40 MG DAILY 01/28 1739 AC 01/29 SC 0931 Erythromycin 1 HAMZAH 4 TIMES/DAY 01/28 2100 AC 01/29 OPH 0938 Fludrocortisone 100 MCG DAILY 01/29 0900 AC 01/29 Acetate PO 0932 Insulin Aspart 0 TIDAC 01/29 0800 AC SC Naphazoline HCl/ 1 GTT 4 TIMES/DAY PRN 01/29 0300 AC 01/29 Pheniramine Maleate OPH 0432 Omeprazole 40 MG DAILY AC 01/29 0700 AC 01/29 PO 0545 Sodium Chloride 1,000 ML Q13H 01/28 1830 AC 01/28 IV 2140 Tamsulosin HCl 0.4 MG QPM 01/28 2100 AC 01/28 PO 2144 Last 24 Hrs of Lab/Tom Results Last 24 Hrs of Labs/Mics: Laboratory Tests 01/28/18 1520: Urine Opiates Screen < 100, Methadone Screen 82, Barbiturate Screen < 60, Ur Phencyclidine Scrn < 6.00, Amphetamines Screen 126, U Benzodiazepines Scrn < 85, Urine Cocaine Screen < 50, Urine Cannabis Screen < 5.00, Urine Color YEL, Urine Clarity CLEAR, Urine pH 6.0, Ur Specific [place] 1.020, Urine Protein NEG, Urine Ketones NEG, Urine Nitrite NEG, Urine Bilirubin NEG, Urine Urobilinogen 0.2, Ur Leukocyte Esterase NEG, Ur Microscopic EXAM NOT REQUIRED, Urine Hemoglobin NEG, Urine Glucose NEG 01/28/18 1432: Anion Gap 14, Estimated GFR > 60, BUN/Creatinine Ratio 22.5, Glucose 178 H, Hemoglobin A1c 6.7 H, Calcium 9.2, Total Bilirubin 0.7, AST 27, ALT < 6 L, Alkaline Phosphatase 71, Troponin I < 0.01, Total Protein 7.2, Albumin 4.3, Globulin 2.9, Albumin/Globulin Ratio 1.5, Vitamin B12 764, TSH 2.560, Free T4 1.17, CBC w Diff NO MAN DIFF REQ, RBC 5.11, MCV 66.9 L, MCH 21.2 L, MCHC 31.7 L, RDW 16.2 H, MPV 7.3 L, Gran % 74.5, Lymphocytes % 17.3 L, Monocytes % 6.9, Eosinophils % 0.8, Basophils % 0.5, Absolute Granulocytes 6.1, Absolute Lymphocytes 1.4, Absolute Monocytes 0.6, Absolute Eosinophils 0.1, Absolute Basophils 0, RPR Titer/FTA NONREACTIVE, Serum Alcohol < 10.0 Microbiology 01/28 152 URINE ROUT: Urine Culture - RECD Assessment/Plan Assessment: Mr. Vázquez is 86-year-old male with past medical history of Parkinson's disease, hypertension, hyperlipidemia, diabetes mellitus, diverticulitis, GERD, and depression who presents with confusion Assessment and plan Altered mental status * His altered mental status can be secondary due to medications, dehydration. At present patient's electrolytes appears to be stable. Patient's daughter denies any new medication use. It doesn't appear he is having any infection. Patient has a [place] catheter. His urinalysis appears normal. Follow-up final urine cultures. Doesnt appear that he has delrium. * Patient had a few choking episodes while eating breakfast hence he was put nothing by mouth. Swallow evaluation ordered. * Patient will also be seen by physical therapy today. * Continue all his home medication except for gabapentin and mIRABIGRON. * Code-DNR/DNI * Diet-regular diet * DVT prophylaxis-Lovenox Problem List: 1. Parkinson disease 2. Altered mental state Pain Ratin Pain Location: none Pain Goal: Remain pain free Pain Plan: tylenol Tomorrow's Labs & Rationales: cbc,bep Lm ALLAN,Leandra 01/29/18 1059: Attending MD Review Statement Attending Statement Attending MD Statement: examined this patient, discuss w/resident/PA/APPLICATIONS TESTER, agreed w/resident/PA/APPLICATIONS TESTER, reviewed EMR data (avail), discussed with nursing, discussed with case mgmt, reviewed images, amended to note Attending Assessment/Plan: Patient seen and examined, he was sleeping this morning. He opened his eyes couple of times. He said that he's resting. He otherwise denies any complaints. Vital Signs Date Time Temp Pulse Resp B/P B/P Pulse O2 O2 Flow FiO2 Mean Ox Delivery Rate 01/30 620 98.9 75 20 132/70 92 Room Air 01/28 2144 89 140/70 01/28 1945 98.6 84 20 140/70 92 Room Air 01/28 1816 98.3 89 20 140/73 91 Room Air 01/28 1613 98.4 89 16 134/70 93 Room Air 01/28 1407 97.8 90 20 119/74 94 Room Air on exam; sleeping but arousable. cv; s1,s2, rrr resp; clear abd; soft, nt, bs+ ext; no edema Laboratory Tests 01/28 01/28 1520 1432 Chemistry Sodium (137 - 145 mmol/L) 139 Potassium (3.5 - 5.1 mmol/L) 3.9 Chloride (98 - 107 mmol/L) 98 Carbon Dioxide (22 - 30 mmol/L) 28 Anion Gap (5 - 16) 14 BUN (9 - 20 mg/dL) 18 Creatinine (0.7 - 1.2 mg/dL) 0.8 Estimated GFR (>60 ml/min) > 60 BUN/Creatinine Ratio (7 - 25 %) 22.5 Glucose (65 - 99 mg/dL) 178 H Hemoglobin A1c (4.2 - 5.8 %) 6.7 H Calcium (8.4 - 10.2 mg/dL) 9.2 Total Bilirubin (0.2 - 1.3 mg/dL) 0.7 AST (17 - 59 U/L) 27 ALT (21 - 72 U/L) < 6 L Alkaline Phosphatase (< 127 U/L) 71 Troponin I (<0.11 ng/ml) < 0.01 Total Protein (6.3 - 8.2 g/dL) 7.2 Albumin (3.5 - 5.0 g/dL) 4.3 Globulin (1.9 - 4.2 gm/dL) 2.9 Albumin/Globulin Ratio (1.1 - 2.2 %) 1.5 Vitamin B12 (239 - 931 pg/mL) 764 TSH (0.270 - 4.200 uIU/mL) 2.560 Free T4 (0.85 - 1.93 ng/dL) 1.17 Hematology CBC w Diff NO MAN DIFF REQ WBC (4.8 - 10.8 /CUMM) 8.3 RBC (4.70 - 6.10 /CUMM) 5.11 Hgb (14.0 - 18.0 G/DL) 10.8 L Hct (42 - 52 %) 34.2 L MCV (80.0 - 94.0 FL) 66.9 L MCH (27.0 - 31.0 PG) 21.2 L MCHC (33.0 - 37.0 G/DL) 31.7 L RDW (11.5 - 14.5 %) 16.2 H Plt Count (130 - 400 /CUMM) 260 MPV (7.4 - 10.4 FL) 7.3 L Gran % (42.2 - 75.2 %) 74.5 Lymphocytes % (20.5 - 51.1 %) 17.3 L Monocytes % (1.7 - 9.3 %) 6.9 Eosinophils % (0 - 5 %) 0.8 Basophils % (0.0 - 2.0 %) 0.5 Absolute Granulocytes (1.4 - 6.5 /CUMM) 6.1 Absolute Lymphocytes (1.2 - 3.4 /CUMM) 1.4 Absolute Monocytes (0.10 - 0.60 /CUMM) 0.6 Absolute Eosinophils (0.0 - 0.7 /CUMM) 0.1 Absolute Basophils (0.0 - 0.2 /CUMM) 0 Serology RPR Titer/FTA (NONREACTIVE) NONREACTIVE Toxicology Urine Opiates Screen (>2000 NG/ML) < 100 Methadone Screen (>300 NG/ML) 82 Barbiturate Screen (>200 NG/ML) < 60 Ur Phencyclidine Scrn (>25 NG/ML) < 6.00 Amphetamines Screen (>1000 NG/ML) 126 U Benzodiazepines Scrn (>200 NG/ML) < 85 Urine Cocaine Screen (>300 NG/ML) < 50 Urine Cannabis Screen (>50 NG/ML) < 5.00 Serum Alcohol (<10 MG/DL) < 10.0 Urines Urine Color (YEL,AMB,STR) YEL Urine Clarity (CLEAR) CLEAR Urine pH (5.0 - 8.0) 6.0 Ur Specific [place] (1.001 - 1.035) 1.020 Urine Protein (NEG,<30 MG/DL) NEG Urine Ketones (NEG) NEG Urine Nitrite (NEG) NEG Urine Bilirubin (NEG) NEG Urine Urobilinogen (0.1 - 1.0 EU/dl) 0.2 Ur Leukocyte Esterase (NEG) NEG Ur Microscopic EXAM NOT REQUIRED Urine Hemoglobin (NEG) NEG Urine Glucose (N MG/DL) NEG A/P: 87 y/o M with pmh sig for hypertension hyperlipidemia diabetes Parkinson's disease, dementia depression and GERD and also has history of prior UTIs. Patient is admitted with altered mental state. No obvious source of infection identified on admission. CT head was negative. No information was given in terms of patient using any narcotics or benzos. Off note patient's rasagiline has been discontinued and fludrocortisone dose has been decreased. Patient getting IV fluids for possible dehydration. Will continue gentle IV hydration. We'll try to avoid any delirium triggers. We'll try to review and the patient. Patient will be seen by physical therapy. The rest of his home medications will be continued except for gabapentin which is held secondary to patient's altered mental state. DVT prophylaxis: Lovenox. Pt should be seen by PT. D/W daughter over the phone.
[2018-01-29 15:12] VITALS: BP 130/80
[2018-01-29 22:43] VITALS: BP 122/80
--- NOTE | 2018-01-29 23:01 | Event Note ---
Event Note Event Note: I was informed by nursing recreation facilities supervisor that Mr. Jim wanted hospitalist to evaluate this patient for 'pink eye' and also talk to patient's daughter Allyn about what is being done for the patient. When I went to evaluate patient at 8 pm, daughter was not around. Examination is not suggestive of conjunctivitis. He does have some yellow crusting. Nurses are applying erythromycin ontment and naphazoline drops to both eyes. He remains confused, slow to respond and is not able to answer questions appropriately. But otherwise grossly neuros intact. He failed swallow eval earlier in the day, but that seems to be due to his inability to follow the verbal command. Later daughter arrived at 10 pm when I was in the midst of admissions. I went upstairs within 15 mins but she left again. I called and left a message on her phone. Finally we connected around 11 pm, she wanted to know why patient is still lethargic and confused. I explained to her about the possibility of medication (gabapentin, mirabegron) induced delirium. Work up till date is essentially negative. She raised concern about his Parkinson medication which was being adjusted by Dr. Gustafson. We agreed upon a Neurology consult which has been placed for AM. Consider MRI to rule out a stroke. Repeat swallow eval in AM.
[2018-01-30 06:03] VITALS: BP 134/78
--- NOTE | 2018-01-30 07:14 | PN- Housestaff ---
Kg ALLAN,Cheri 01/30/18 0714: Subjective Follow-up For: altered mental status Subjective: Patient seen and examined at bedside. He was lying in his bed comfortably. No overnight events. Patient complains of neck pain. He is alert, awake oriented requesting to see his Daughter. Review of Systems Constitutional: Reports: no symptoms, see HPI. Objective Last 24 Hrs of Vital Signs/I&O Vital Signs Date Time Temp Pulse Resp B/P B/P Pulse O2 O2 Flow FiO2 Mean Ox Delivery Rate 01/30 0603 98.1 89 20 134/78 92 Room Air 01/29 2243 98.3 84 20 122/80 91 Room Air 01/29 1512 98.1 92 20 130/80 93 Intake & Output 01/30 1600 01/30 0800 01/30 0000 Intake Total 650 720 Output Total Balance 650 720 Intake, IV 600 600 Intake, Oral 50 120 Number 0 Bowel Movements Physical Exam General Appearance: Alert, Cooperative, No Acute Distress, oriented x 2 Cardiovascular: Regular Rate, Normal S1, Normal S2, No Murmurs Lungs: Normal Air Movement Abdomen: Soft, No Tenderness, No Hepatospenomegaly Neurological: Normal Speech, alert, [id number] Current Medications: Current Medications Sig/Eduin Start time Last Medication Dose Route Stop Time Status Admin Acetaminophen 500 MG Q6P PRN 01/30 0915 AC PO Aspirin Buffered 81 MG QPM 01/28 2100 AC 01/29 PO 2110 Atorvastatin Calcium 10 MG 1700 01/29 1700 AC 01/29 PO 1900 Carbidopa/Levodopa 1 TAB TID 01/28 2100 AC 01/29 PO 2110 Citalopram 60 MG QPM 01/28 2100 AC 01/29 Hydrobromide PO 2110 Dextrose/Sodium 1,000 ML Q13H 01/29 1530 AC 01/30 Chloride IV 0437 Enoxaparin Sodium 40 MG DAILY 01/28 1739 AC 01/29 SC 0931 Erythromycin 1 HAMZAH 4 TIMES/DAY 01/28 2100 AC 01/29 OPH 2110 Fludrocortisone 100 MCG DAILY 01/29 0900 AC 01/29 Acetate PO 0932 Insulin Aspart 0 TIDAC 01/29 0800 DC SC Insulin Human Regular 2 UNITS .STK-MED ONE 01/30 0026 DC IV 01/30 0027 Insulin Human Regular 0 Q6 01/29 1341 AC 01/30 SC 0608 Lidocaine 1 PAT Q24 01/30 0909 AC TOP Naphazoline HCl/ 1 GTT 4 TIMES/DAY PRN 01/29 0300 AC 01/29 Pheniramine Maleate OPH 1858 Omeprazole 40 MG DAILY AC 01/29 0700 AC 01/30 PO 0608 Sodium Chloride 1,000 ML Q13H 01/28 1830 DC 01/29 IV 1100 Tamsulosin HCl 0.4 MG QPM 01/28 2100 AC 01/29 PO 2110 Last 24 Hrs of Lab/Tom Results Last 24 Hrs of Labs/Mics: Laboratory Tests 01/30/18 0620: Sodium Pending, Potassium Pending, Chloride Pending, Carbon Dioxide Pending, Anion Gap Pending, BUN Pending, Creatinine Pending, BUN/Creatinine Ratio Pending , CBC w Diff Pending, WBC Pending, RBC Pending, Hgb Pending, Hct Pending, MCV Pending, MCH Pending, MCHC Pending, RDW Pending, Plt Count Pending, MPV Pending Assessment/Plan Assessment: Mr. Vázquez is 86-year-old male with past medical history of Parkinson's disease, hypertension, hyperlipidemia, diabetes mellitus, diverticulitis, GERD, and depression who presents with confusion Assessment and plan Altered mental status * His altered mental status can be secondary due to medications, dehydration. At present patient's electrolytes appears to be stable. Patient's daughter denies any new medication use. Patient's rasagiline was recently stopped. It doesn't appear he is having any infection. Patient has a [place] catheter. His urinalysis appears normal. Follow-up final urine cultures. Doesnt appear that he has delrium. * Patient had a few choking episodes while eating breakfast yesterday. He was n.p.o. for the same. He was evaluated by speech therapist and suggested to increase his diet to regular things. * Patient will also be seen by physical therapy today. * Continue all his home medication except for gabapentin and mIRABIGRON. * Code-DNR/DNI * Diet-regular diet * DVT prophylaxis-Lovenox. Problem List: 1. Altered mental state Pain Ratin Pain Location: neck Pain Goal: Remain pain free Pain Plan: tylenol, lidocaine patch Tomorrow's Labs & Rationales: cbc,bep Leandra Amato MD 01/30/18 1100: Attending MD Review Statement Attending Statement Attending MD Statement: examined this patient, discuss w/resident/PA/VESSEL CAPTAIN, agreed w/resident/PA/VESSEL CAPTAIN, discussed with family, reviewed EMR data (avail), discussed with nursing, discussed with case mgmt, reviewed images, amended to note Attending Assessment/Plan: Patient seen and examined, slightly more awake today. He was able to tell is that he was having some pain in the back of his neck. He was asking for hospital VENEER JOINTER HELPER Mr. Twin Jim. Patient is able to tell me his date of as well as his location. Vital Signs Date Time Temp Pulse Resp B/P B/P Pulse O2 O2 Flow FiO2 Mean Ox Delivery Rate 01/30 0603 98.1 89 20 134/78 92 Room Air 01/29 2243 98.3 84 20 122/80 91 Room Air 01/29 1512 98.1 92 20 130/80 93 on exam; aox2, nad. cv; s1,s2, rrr resp; clear abd; soft, nt, bs+ ext; no edema Laboratory Tests 01/30 0620 Chemistry Sodium (137 - 145 mmol/L) 137 Potassium (3.5 - 5.1 mmol/L) 3.9 Chloride (98 - 107 mmol/L) 100 Carbon Dioxide (22 - 30 mmol/L) 26 Anion Gap (5 - 16) 10 BUN (9 - 20 mg/dL) 10 Creatinine (0.7 - 1.2 mg/dL) 0.6 L Estimated GFR (>60 ml/min) > 60 BUN/Creatinine Ratio (7 - 25 %) 16.7 Hematology CBC w Diff NO MAN DIFF REQ WBC (4.8 - 10.8 /CUMM) 7.2 RBC (4.70 - 6.10 /CUMM) 4.71 Hgb (14.0 - 18.0 G/DL) 10.0 L Hct (42 - 52 %) 30.9 L MCV (80.0 - 94.0 FL) 65.6 L MCH (27.0 - 31.0 PG) 21.2 L MCHC (33.0 - 37.0 G/DL) 32.3 L RDW (11.5 - 14.5 %) 15.8 H Plt Count (130 - 400 /CUMM) 238 MPV (7.4 - 10.4 FL) 8.3 Gran % (42.2 - 75.2 %) 71.8 Lymphocytes % (20.5 - 51.1 %) 20.3 L Monocytes % (1.7 - 9.3 %) 6.0 Eosinophils % (0 - 5 %) 1.3 Basophils % (0.0 - 2.0 %) 0.6 Absolute Granulocytes (1.4 - 6.5 /CUMM) 5.2 Absolute Lymphocytes (1.2 - 3.4 /CUMM) 1.5 Absolute Monocytes (0.10 - 0.60 /CUMM) 0.4 Absolute Eosinophils (0.0 - 0.7 /CUMM) 0.1 Absolute Basophils (0.0 - 0.2 /CUMM) 0 A/P: 87 y/o M with pmh sig for hypertension hyperlipidemia diabetes Parkinson's disease, dementia depression and GERD and also has history of prior UTIs. Patient is admitted with altered mental state. No obvious source of infection identified on admission. CT head was negative. No information was given in terms of patient using any narcotics or benzos. Off note, as an outpatient patient's rasagiline has been discontinued by [facility] neurologist and fludrocortisone dose has been decreased. Upon admission gabapentin and Wellbutrin were discontinued. Patient has been getting IV hydration. Will get brain MRI today. Will get neurology consult. Patient passed swallow eval and will be started on diet. Once we make sure that his by mouth intake is adequate, IV fluids can then be discontinued. Patient is on erythromycin for conjunctivitis. Use Tylenol for pain management. We can also apply Lidoderm patch the back of the neck. DVT px; Lovenox. PT eval. Discussed with patient's daughter Ms. Jean Vázquez at bedside.
[2018-01-30 09:18] LABS: ABSOLUTE BASOPHIL COUNT 0 /CUMM (0.0-0.2); ABSOLUTE EOSINOPHIL COUNT 0.1 /CUMM (0.0-0.7); ABSOLUTE GRANULOCYTE CT 5.2 /CUMM (1.4-6.5); ABSOLUTE LYMPH COUNT 1.5 /CUMM (1.2-3.4); ABSOLUTE MONOCYTE COUNT 0.4 /CUMM (0.10-0.60); BASOPHIL % 0.6 % (0.0-2.0); EOSINOPHIL % 1.3 % (0-5); GRANULOCYTE % 71.8 % (42.2-75.2); HEMATOCRIT 30.9 % (42-52); MEAN CORPUSCULAR HGB 21.2 PG (27.0-31.0); MEAN CORPUSCULAR HGB CONC 32.3 G/DL (33.0-37.0); MEAN CORPUSCULAR VOLUME 65.6 FL (80.0-94.0); MEAN PLATELET VOLUME 8.3 FL (7.4-10.4); PLATELET COUNT 238 /CUMM (130-400); RBC DISTRIBUTION WIDTH 15.8 % (11.5-14.5); RED BLOOD CELL CT 4.71 /CUMM (4.70-6.10); WHITE BLOOD CELL COUNT 7.2 /CUMM (4.8-10.8)
--- NOTE | 2018-01-30 12:44 | MRI REPORT ---
EXAMINATION: MR BRAIN WITHOUT CONTRAST CLINICAL INFORMATION: Altered mental status. COMPARISON: CT head 01/28/2018. TECHNIQUE: MRI of the brain without contrast was obtained using routine sequences. FINDINGS: Patient motion degrades image quality therefore the diagnostic accuracy of this examination is limited. There is relatively extensive T2 FLAIR signal hyperintensity throughout the periventricular white matter that most likely represents a chronic manifestation of small vessel ischemia. No acute territorial infarct. No pathological magnetic susceptibility artifact. Intracranial vascular flow voids are grossly maintained. There is no intracranial mass effect or midline shift. No abnormal extra-axial collection. Lateral and third ventricles are prominent and there is proportionate prominence of the subarachnoid spaces reflecting a moderate degree of global parenchymal volume loss. Midline structures including the cervicomedullary junction are normal. Bone marrow signal intensity is normal. There is no mastoid or middle ear effusion. Visualized paranasal sinuses are well-aerated. Globes and orbits are symmetric. IMPRESSION: Patient motion degrades image quality therefore the diagnostic accuracy of this examination is limited. Moderate global parenchymal volume loss and numerous chronic small vessel ischemic changes primarily involving the periventricular white matter. Grossly no evidence of acute territorial infarct or hemorrhage.
[2018-01-30 14:29] VITALS: BP 140/90
--- NOTE | 2018-01-30 15:37 | Patient Discharge Instructions ---
Discharge Instructions General Discharge Information You were seen/treated for: ALTERED MENTAL STATUS Diet Continue normal diet: No Recommended Diet: Regular Activity Full Activity/No Limits: No Activity Self Limited: Yes Acute Coronary Syndrome Inclusion Criteria At DC or during hospital stay patient has or had the following: ACS DIAGNOSIS No Discharge Core Measures Meds if any: Prescribed or Continued at Discharge Meds if any: NOT Prescribed or Continued at Discharge Congestive Heart Failure Inclusion Criteria At DC or during hospital stay patient has or had the following: CHF DIAGNOSIS No Discharge Core Measures Meds if any: Prescribed or Continued at Discharge Meds if any: NOT Prescribed or Continued at Discharge Cerebrovascular accident Inclusion Criteria At DC or during hospital stay patient has or had the following: CVA/TIA Diagnosis No Discharge Core Measures Meds if any: Prescribed or Continued at Discharge Meds if any: NOT Prescribed or Continued at Discharge Venous thromboembolism Inclusion Criteria VTE Diagnosis No VTE Type NONE VTE Confirmed by (Test) NONE Discharge Core Measures - Per Current guidelines, there needs to be overlap - treatment for the first 5 days of Warfarin therapy. - If discharged on Warfarin prior to 5 days of - overlap therapy, the patient will need to be - assessed for post discharge needs including - *Post discharge parental anticoagulation - *Warfarin and/or parental anticoagulation education - *Follow up date to check INR post discharge At least 5 days overlap therapy as Inpatient No Meds if any: Prescribed or Continued at Discharge Note: Overlap Therapy is Warfarin and Anticoagulant Meds if any: NOT Prescribed or Continued at Discharge
--- NOTE | 2018-01-30 16:42 | Cons- Neurology ---
General Information and HPI Consulting Request Date of Consult: 01/30/18 Requested By: Leandra Amato MD Reason for Consult: Altered mental status Source of Information: family, old records Exam Limitations: unable to give history, not alert/orientated, dementia History of Present Illness: 87-year-old man followed as an outpatient Parkinson's disease has been relatively stable recently according to the family. I received a call from his primary physician Otis lanier 2 days ago that he seemed more confused with some occasional hallucinations and possible end of dose failure on his Sinemet. According to family he was less responsive and even more so yesterday leading to presentation to the emergency room. They state that his level of consciousness has improved today but is not nearly back to baseline. Functional status at home: Conversant, speech clear, some cognitive impairment. Ambulatory only with assistance of his aid who supports him with a waist belt. Minimal tremor, intermittent. Generally functional for most routine daily activities with the upper extremities. Orthostatic hypotension had been quite problematic with the patient becoming confused and generally weak on arising but clearing on lying down. This had improved markedly with fludrocortisone 0.1 MG every morning, discontinuation of Azilect and a reduction in Sinemet from 250 to CR 50/200 3 times daily. Since presentation no evidence of infection, no new medications have been added, suspicion of dehydration. With IV fluids he appears to be somewhat improved today compared with yesterday according to the family. They tell me that he tends to not drink fluids on his own. Myrbetriq and gabapentin have been discontinued Allergies/Medications Allergies: Coded Allergies: NO KNOWN ALLERGIES (04/10/15) Home Med List: Aspirin (Ecotrin*) 81 MG TABLET.DR 1 TAB PO QPM HEART/BLOOD (Reported) Carbidopa/Levodopa (Carbidopa-Levo ER 50-200 Tab) 50 MG-200 MG TABLET.ER 1 TAB PO TID PARKINSONS (Reported) Citalopram Hydrobromide (Citalopram HBr) 40 MG TABLET 1.5 TAB PO QPM DEPRESSION (Reported) Fludrocortisone Acetate 0.1 MG TABLET 1 TAB PO DAILY BP (Reported) Gabapentin (Neurontin) 300 MG CAPSULE 1 CAP PO BID NEUROPATHY (Reported) Mirabegron (Myrbetriq) 25 MG TAB.ER.24H 1 TAB PO QAM BPH (Reported) Pantoprazole Sodium (Protonix) 40 MG TABLET. 1 TAB PO QAM GI (Reported) Simvastatin (Zocor*) 20 MG TABLET 1 TAB PO QPM CHOLESTEROL (Reported) Tamsulosin HCl (Flomax) 0.4 MG CAP.ER.24H 1 CAP PO QPM BPH (Reported) Current Medications: Current Medications Sig/Eduin Start time Last Medication Dose Route Stop Time Status Admin Acetaminophen 500 MG Q6P PRN 01/30 0915 AC 01/30 PO 1552 Aspirin Buffered 81 MG QPM 01/28 2100 AC 01/29 PO 2110 Atorvastatin Calcium 10 MG 1700 01/29 1700 AC 01/30 PO 1552 Carbidopa/Levodopa 1 TAB TID 01/28 2100 AC 01/30 PO 1400 Citalopram 60 MG QPM 01/28 2100 AC 01/29 Hydrobromide PO 211 Dextrose/Sodium 1,000 ML Q20H 01/30 1045 DC Chloride IV Dextrose/Sodium 1,000 ML Q13H 01/29 1530 DC 01/30 Chloride IV 0437 Enoxaparin Sodium 40 MG DAILY 01/28 1739 AC 01/30 SC 0921 Erythromycin 1 HAMZAH 4 TIMES/DAY 01/28 2100 AC 01/30 OPH 1228 Fludrocortisone 100 MCG DAILY 01/29 0900 AC 01/30 Acetate PO 0921 Insulin Aspart 0 TIDAC 01/30 1200 AC 01/30 SC 1228 Insulin Human Regular 2 UNITS .STK-MED ONE 01/30 0606 DC IV 01/30 0607 Insulin Human Regular 2 UNITS .STK-MED ONE 01/30 0026 DC IV 01/30 0027 Insulin Human Regular 0 Q6 01/29 1341 DC 01/30 SC 0608 Lidocaine 1 PAT Q24 01/30 0909 AC 01/30 TOP 1017 Naphazoline HCl/ 1 GTT 4 TIMES/DAY PRN 01/29 0300 AC 01/30 Pheniramine Maleate OPH 0923 Omeprazole 40 MG DAILY AC 01/29 0700 AC 01/30 PO 0608 Patient Medication 1 ED ONE ONE 01/30 1545 DC 01/30 Teaching ED 01/30 1546 1552 Tamsulosin HCl 0.4 MG QPM 01/28 2100 AC 01/29 PO 2110 Past History Travel History Traveled to [place] past 21 day No Medical History Blood Transfusion Hx: No Neurological: Parkinson's disease EENT: NONE Cardiovascular: hypertension, hyperlipidemia Respiratory: NONE Gastrointestinal: diverticulitis Hepatic: NONE Renal: NONE Musculoskeletal: NONE Psychiatric: NONE Endocrine: diabetes Blood Disorders: NONE Cancer(s): NONE LICENSED FINAL EXPENSE AGENTS/Reproductive: NONE Surgical History Surgical History: appendectomy, hernia repair-inguinal Family History Relations & Conditions If Any: BROTHER (Patient has 2 brothers who were diagnosed with diabetes). Psychosocial History Services at Home: Home Health Aide Primary Language: Welsh Smoking Status: Never Smoked Living Will? unknown Functional Ability ADLs Needs Assist: dressing, eating, toileting, bathing. Ambulation: independent IADLs Needs Assist: shopping, housework, finances, food prep, telephone, transportation, medication admin. Exam & Diagnostic Data Vital Signs and I&O Vital Signs Date Time Temp Pulse Resp B/P B/P Pulse O2 O2 Flow FiO2 Mean Ox Delivery Rate 01/30 1429 98.3 88 20 140/90 93 Room Air 01/30 0603 98.1 89 20 134/78 92 Room Air 01/29 2243 98.3 84 20 122/80 91 Room Air Intake & Output 01/30 1600 01/30 0800 01/30 0000 Intake Total 660 650 720 Output Total Balance 660 650 720 Intake, IV 300 600 600 Intake, Oral 360 50 120 Number 0 Bowel Movements Patient 169 lb Weight Physical Exam: Lying comfortably in bed, skin color good, no apparent distress. Mucosa moist. Somnolent, awakens to voice and will converse briefly but then drifts back to sleep. Oriented to name only, at first thought location was [place] and then realized [place]. Gave the month but not the year. No gross language impairment, voice fairly strong. I movements pupillary light responses facial movement and lower cranial nerves unremarkable. 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 Motor tone modestly increased Some mild myoclonic jerking, not his typical hand tremor which is not seen at this time Reports perception of touch all 4 extremities Remaining elements of complete neurologic exam cannot be completed due to his mental state or would be noncontributory Last 48 Hours of Lab Results: Laboratory Tests 01/30 0620 Chemistry Sodium (137 - 145 mmol/L) 137 Potassium (3.5 - 5.1 mmol/L) 3.9 Chloride (98 - 107 mmol/L) 100 Carbon Dioxide (22 - 30 mmol/L) 26 Anion Gap (5 - 16) 10 BUN (9 - 20 mg/dL) 10 Creatinine (0.7 - 1.2 mg/dL) 0.6 L Estimated GFR (>60 ml/min) > 60 BUN/Creatinine Ratio (7 - 25 %) 16.7 Hematology CBC w Diff NO MAN DIFF REQ WBC (4.8 - 10.8 /CUMM) 7.2 RBC (4.70 - 6.10 /CUMM) 4.71 Hgb (14.0 - 18.0 G/DL) 10.0 L Hct (42 - 52 %) 30.9 L MCV (80.0 - 94.0 FL) 65.6 L MCH (27.0 - 31.0 PG) 21.2 L MCHC (33.0 - 37.0 G/DL) 32.3 L RDW (11.5 - 14.5 %) 15.8 H Plt Count (130 - 400 /CUMM) 238 MPV (7.4 - 10.4 FL) 8.3 Gran % (42.2 - 75.2 %) 71.8 Lymphocytes % (20.5 - 51.1 %) 20.3 L Monocytes % (1.7 - 9.3 %) 6.0 Eosinophils % (0 - 5 %) 1.3 Basophils % (0.0 - 2.0 %) 0.6 Absolute Granulocytes (1.4 - 6.5 /CUMM) 5.2 Absolute Lymphocytes (1.2 - 3.4 /CUMM) 1.5 Absolute Monocytes (0.10 - 0.60 /CUMM) 0.4 Absolute Eosinophils (0.0 - 0.7 /CUMM) 0.1 Absolute Basophils (0.0 - 0.2 /CUMM) 0 Imaging/Other Studies: Brain MRI: Patient motion degrades image quality therefore the diagnostic accuracy of this examination is limited. Moderate global parenchymal volume loss and numerous chronic small vessel ischemic changes primarily involving the periventricular white matter. Grossly no evidence of acute territorial infarct or hemorrhage. Head CT: Patient motion degrades image quality therefore the diagnostic accuracy of this examination is limited. Moderate global parenchymal volume loss and numerous chronic small vessel ischemic changes primarily involving the periventricular white matter. Grossly no evidence of acute territorial infarct or hemorrhage. Assessment/Plan Assessment: Altered mental status with reduced level of consciousness in a patient with nonfocal exam, no evidence of acute infarct by CT or MRI and with Parkinson's disease. The pattern is that of a toxic or metabolic encephalopathy although an exact cause has not been uncovered. He appears to be improving perhaps with hydration and perhaps due to discontinuation of Myrbetriq and gabapentin which can be sedating Parkinson's disease is under acceptable control on his current Sinemet dose balancing ability to function at least with the upper extremities against the risk of dopamine side effects Recommendations: Continue observation and search for an intercurrent medical process such as infection Would continue current Sinemet dose Patient should be up in chair or sit up in bed as much as possible to avoid worsening of orthostatic hypotension Check orthostatic blood pressures Swallowing evaluation Encouraged fluids Consult Acknowledgment - Thank you for your consult request.
[2018-01-30 20:09] VITALS: BP 120/80
[2018-01-31 06:00] VITALS: BP 140/74
--- NOTE | 2018-01-31 07:13 | PN- Housestaff ---
Subjective Follow-up For: altered mental status Subjective: Patient seen and examined at bedside no overnight events. Patient is alert, oriented 2. Patient is sitting in his chair comfortably. He is able to answer some of the questions and follow commands. He complains of neck pain. Review of Systems Constitutional: Reports: no symptoms, see HPI. Objective Last 24 Hrs of Vital Signs/I&O Vital Signs Date Time Temp Pulse Resp B/P B/P Pulse O2 O2 Flow FiO2 Mean Ox Delivery Rate 01/31 600 98.4 84 18 140/74 92 Room Air 01/30 2009 98.0 93 18 120/80 94 Room Air 01/30 2007 93 120/80 Intake & Output 01/31 1600 01/31 0800 01/31 0000 Intake Total 130 700 Output Total Balance 130 700 Intake, IV 10 Intake, Oral 120 700 Number 2 Bowel Movements Patient 170 lb Weight Physical Exam General Appearance: Alert, Cooperative, No Acute Distress Cardiovascular: Normal S1, Normal S2, No Murmurs Lungs: Normal Air Movement Abdomen: Soft, No Tenderness, No Hepatospenomegaly Neurological: Normal Speech, Sensation Intact Assessment/Plan Assessment: Mr. Vázquez is 86-year-old male with past medical history of Parkinson's disease, hypertension, hyperlipidemia, diabetes mellitus, diverticulitis, GERD, and depression who presents with confusion Assessment and plan Altered mental status * His altered mental status can be secondary due to medications, dehydration. At present patient's electrolytes appears to be stable. Patient's rasagiline was recently stopped. It doesn't appear he is having any infection. His urinalysis appears normal. Doesnt appear that he has delrium. * Patient had a few choking episodes while in the hospital. Patient was evaluated by speech who suggested to continue regular diet with pure. * Patient was seen by physical therapy who recommended short-term rehabilitation. But the patient started to refuse rehabilitation and wanted to go home and continue his home health services. * Continue all his home medication except for gabapentin and mIRABIGRON. * Code-DNR/DNI * Diet-regular diet * DVT prophylaxis-Lovenox. Plan to send him home and follow up with his neurologist/primary care physician. Problem List: 1. Altered mental state Pain Ratin Pain Location: none Pain Goal: Remain pain free Pain Plan: tylenol Tomorrow's Labs & Rationales: none
[2018-01-31 08:53] LABS: HEMATOCRIT 32.4 % (42-52); MEAN CORPUSCULAR HGB 21.2 PG (27.0-31.0); MEAN CORPUSCULAR HGB CONC 31.3 G/DL (33.0-37.0); MEAN CORPUSCULAR VOLUME 67.6 FL (80.0-94.0); MEAN PLATELET VOLUME 8.3 FL (7.4-10.4); PLATELET COUNT 237 /CUMM (130-400); RED BLOOD CELL CT 4.79 /CUMM (4.70-6.10); WHITE BLOOD CELL COUNT 10.2 /CUMM (4.8-10.8)
--- NOTE | 2018-01-31 10:54 | PN- Att Addend ---
See Addendum Attending Addendum Attending Brief Note Patient seen and examined, doing much better. Much more awake and talking. He was able to joke around and was asking about CHANGE ANALYST . Twin Jim. His vital signs are stable. His MRI brain came out negative and he was seen by neurology Dr. Gustafson who recommended to continue the same dose of Sinemet. Otherwise we have not found any other source of altered mental state except that we discontinue 2 of his medications and be hydrated with IV fluids. At this point he is back to his baseline. He has passed swallow evaluation also. He is medically stable for discharge in the daughter thinks that patient would be better served at home with home health aide. If the home health aid services can be resumed starting today then he can be discharged today. Additionally he will be continued on erythromycin eye ointment for another 5 days to complete the course for conjunctivitis. He is getting some relief of his neck pain from Lidoderm patch which can be continued as well. Will keep holding his Gabapentin and Myrbetriq. The rest of his home medications will be continued.
[2018-01-31] MEDS ORDERED: ERYTHROMYCIN1 GM OPH ×2 (11:56→11:58)
[2018-01-31] MEDS ORDERED: LIDODERM1 EACH TOP ×2 (11:56→11:58)
--- NOTE | 2018-01-31 14:13 | Discharge Summary ---
Visit Information Visit Dates Admission Date: 01/28/18 Discharge Date: 01/31/18 Hospital Course Course Attending Physician: Leandra Amato MD Primary Care Physician: Otis Abdullahi MD Hospital Course: Mr. Vázquez is 86-year-old male with past medical history of Parkinson's disease, hypertension, hyperlipidemia, diabetes mellitus, diverticulitis, GERD, and depression who presents with confusion. Patient is confused upon interviewing. Most of the history is obtained from the and daughter over the phone and at bedside respectively. According to the he was in his usual state of health until yesterday, patient was seen by health aide wound thought he was more confused and took him to the primary care physician. But the doesn't know what treatment was given during that visit. The day of admission, health aide saw that he was more confused compared to yesterday and decided to bring him to [facility]. Off note patient has been admitted for confusion in August 2017 during that time patient had UTI [ enterococcus]. At baseline patient has parkinsonism and dementia. He uses walker for ambulation. Patient'smed rasgiline was recently stopped by his neurologist. Hospital course Patient was admitted for altered mental status. His altered mental status was suspected secondary due to dehydration and medications. There was no evidence of any infection. Patient was treated with IV fluids. Patient's medication gabapentin and mIRABIGRON was stopped because this can cause confusion and altered mental status. Patient was seen by neurologist who suggested to continue current dose of Sinemet and encourage fluids. Patient during the hospital admission had few choking episodes and was evaluated by speech therapist. He apssed swallow eval. Patient was able to take his regular diet. Patient had discharge through his eyes possible conjunctivitis and was started on erythromycin. Patient also complained of neck pain and was given Lidoderm patch. Patient was seen by physical therapy who suggested short- term rehabilitation. The patient's daughter requested to be sent home with Home health aid and continue his home health services. Hence patient was sent home with follow-up with neurology and PCP. Allergies: Coded Allergies: NO KNOWN ALLERGIES (04/10/15) Pertinent Lab Results: CT abdomen and pelvis and chest CT Mild compression deformity of the T2 vertebral body. While this is of uncertain chronicity, this is new compared to 02/02/2016. Correlate with location of pain.. Bibasilar atelectasis in the lungs. No consolidation. Colonic diverticulosis without diverticulitis. Mild colonic stool burden. head ct No evidence for acute intracranial injury. Stable age-appropriate appearance of the brain. Head MRI Patient motion degrades image quality therefore the diagnostic accuracy of this examination is limited. Moderate global parenchymal volume loss and numerous chronic small vessel ischemic changes primarily involving the periventricular white matter. Grossly no evidence of acute territorial infarct or hemorrhage. Disposition Summary Disposition Principal Diagnosis: Altered mental status Additional Diagnosis: None Discharge Disposition: home or self care Discharge Instructions General Discharge Information Code Status: Do Not Resucitate/Intubat Patient's Diet: Regular diet Patient's Activity: As tolerated Follow-Up Instructions/Appts: Please follow with primary care provider/neurologist within 1-2 weeks of discharge Medications at Discharge Discharge Medications: Stop taking the following medications: Mirabegron (Myrbetriq) 25 MG TAB.ER.24H ORAL Every Morning Gabapentin (Neurontin) 300 MG CAPSULE ORAL TWICE DAILY Continue taking these medications: Simvastatin (Zocor*) 20 MG TABLET 1 Tablet ORAL Every night Comments: ATORVASTATIN ADMINISTERED Last Taken: 01/30/18 Time: 6PM Pantoprazole Sodium (Protonix) 40 MG TABLET.DR 1 Tablet ORAL Every Morning Comments: Last Taken: 01/31/18 Time: 5AM PRILOSEC ADMINISTERED Tamsulosin HCl (Flomax) 0.4 MG CAP.ER.24H 1 Capsule ORAL Every night Comments: Last Taken: 01/30/18 Time: 8PM Citalopram Hydrobromide (Citalopram HBr) 40 MG TABLET 1.5 Tablet ORAL Every night Comments: Last Taken: 01/30/18 Time: 8PM Aspirin (Ecotrin*) 81 MG TABLET.DR 1 Tablet ORAL Every night Comments: Last Taken: 01/30/18 Time: 8PM Carbidopa/Levodopa (Carbidopa-Levo ER 50-200 Tab) 50 MG-200 MG TABLET.ER 1 Tablet ORAL THREE TIMES DAILY Qty = 9 Comments: Last Taken: 01/31/18 Time: 8:30AM Fludrocortisone Acetate (Fludrocortisone Acetate) 0.1 MG TABLET 1 Tablet ORAL DAILY Qty = 60 Comments: Last Taken: 01/31/18 Time: 8:30AM Start taking the following new medications: Lidocaine (Lidoderm) 5 % ADH..PATCH 1 Patch On the skin EVERY 24 HOURS Qty = 30 No Refills Instructions: . Comments: Last Taken: 01/31/18 Time: 9:30 AM Erythromycin Base (Erythromycin) 5 MG/GRAM (0.5 %) OINT...G. 1 Application In the eye 4 TIMES A DAY Qty = 1 No Refills Instructions: . Comments: use until 02/04/18 Last Taken: 01/31/18 Time: 9:30 AM Copies To: Sj ALLAN,Laurent Barclay; Kaylen ALLAN,Otis Powell
== END 2018-01-31 12:30 | DRG 641 ==
LOC: ERH 13:32 → ERHI 17:08 → 2NA 17:08 → ENRESERV 17:53 → ENTRNSPT 19:04 → EDTRNSPTSTS 19:08 → EDTRNSPT 19:08 → 2NA 19:12 → CMPTRNSPT 19:27 → 2NA 01-29 07:16 → ENPENDDIS 01-31 11:01 → 2NA 01-31 12:30
PROVIDERS: Physician Assistant Medical; Student in an Organized Health Care Education/Training Program
DX: E86.0 Dehydration (principal); G20 Parkinson's disease; M80.08XA Age-related osteoporosis with current pathological fracture, vertebra(e), initial encounter for fracture; R44.3 Hallucinations, unspecified; R41.82 Altered mental status, unspecified; E11.9 Type 2 diabetes mellitus without complications; Z79.4 Long term (current) use of insulin; F32.9 Major depressive disorder, single episode, unspecified; K21.9 Gastro-esophageal reflux disease without esophagitis; R26.2 Difficulty in walking, not elsewhere classified; K57.90 Diverticulosis of intestine, part unspecified, without perforation or abscess without bleeding; R32 Unspecified urinary incontinence; T50.905A Adverse effect of unspecified drugs, medicaments and biological substances, initial encounter; I10 Essential (primary) hypertension; E78.5 Hyperlipidemia, unspecified; Z66 Do not resuscitate
CPT/HCPCS: 2NAP; 70551; 36592; 74176; 80307; 81003; 82436; 87086; 93005; 93010; 97112-GO; 97161-GP; 97530-GO; G0480; J1650; J1815; J7042